=== PATIENT | female | born 1960 | race Caucasian/White ===

== ENCOUNTER 2019-04-09 07:58 | Outpatient (CLI) | payer OTHER, SELFPAY ==
--- NOTE | ~2019-04-09 | CT_ITS ---
EXAMINATION: CT abdomen pelvis w con DATE: 04/09/2019 08:48 INDICATION: Right lower quadrant abdominal pain TECHNIQUE: Computed tomography (CT) of the abdomen and pelvis was performed with 100 mL Omnipaque-350 intravenous contrast. Automated exposure control and iterative reconstruction technique were employe d. The dose-length product was 375.52 mGy-cm. COMPARISON: 09/14/2017 FINDINGS: Minimal atelectasis in the right middle lobe. Heart size is normal. No pericardial or pleural effusio n. Small sliding-type hiatal hernia. Liver, gallbladder, pancreas, bilateral adrenal glands are neisha l. Multiple small splenic calcifications consistent with old granulomatous disease. 2 mm and 2 mm non obstructing stones at lower pole calyces of the left kidney. 1 cm exophytic cyst at the lower pole of the right kidney. Unchanged pattern of phleboliths in the pelvis. No stones seen along the course of the normal ureters. There are few scattered colonic diverticula without adjacent inflammatory change to suggest diverticulitis. Small bowel and appendix are normal. Bladder, anteverted uterus and bilat eral ovaries are normal. There is increased prominence of the left gonadal vein and left parametrial vessels which can be seen with pelvic vascular congestion syndrome. Very small amount of likely physi ologic free fluid in the pelvis. No abscess or free intraperitoneal gas. No pathologically enlarged a bdominal or pelvic lymphadenopathy. Tiny fat-containing umbilical hernia. 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 IMPRESSION: 1. Nonobstructing left nephrolithiasis. 2. Small sliding-type hiatal hernia. Reviewed, dictated and finalized at location A. L FINISHER
[2019-04-09 08:37] LABS: Estimated Glomerular Filt Rate > 60
== END 2019-04-09 07:59 | disposition home or self-care (01) ==
PROVIDERS: PCP Internal Medicine; Visit Provider Nurse Practitioner
DX: R10.32 Left lower quadrant pain (principal); N20.0 Calculus of kidney; K44.9 Diaphragmatic hernia without obstruction or gangrene
CPT/HCPCS: 36415; 74177; Q9967

== ENCOUNTER → 2019-04-09 11:53 | Outpatient (CLI) | payer OTHER, SELFPAY ==
--- NOTE | ~2019-04-09 | US_ITS ---
EXAMINATION: US abdomen limited DATE: 04/09/2019 12:11 INDICATION: Abnormal liver function tests. TECHNIQUE: Multiple grayscale and Doppler ultrasound images of the abdomen were obtained. COMPARISON: Abdomen ultrasound 08/31/2012, CT abdomen and pelvis 04/09/2019 FINDINGS: The visualized portions of the head and body of the pancreas are normal. The liver is neisha l without focal lesion. No liver surface nodularity. There is normal flow in main portal vein. The ga llbladder is normal in size. No gallstones or gallbladder wall thickening. There was no sonographic M urphy sign. The common duct is normal and measures 4 mm. IMPRESSION: 1. Normal right upper quadrant ultrasound. Reviewed, dictated and finalized at location A. CTOR ADVERTISING
== END ==
PROVIDERS: PCP Internal Medicine; Visit Provider Nurse Practitioner
DX: R94.5 Abnormal results of liver function studies (principal)
CPT/HCPCS: 76705

== ENCOUNTER → 2019-08-12 08:26 | Outpatient (CLI) | payer OTHER, SELFPAY ==
--- NOTE | ~2019-08-12 | MMUS_ITS ---
EXAMINATION: MM diagnostic mike BI w hector, US breast LT limited HISTORY: Left breast pain TECHNIQUE: Craniocaudal, mediolateral, and mediolateral oblique 3-D tomosynthesis images of the breas ts were performed and synthetic 2-D images were generated. CAD analysis was submitted and interpreted . High resolution limited left breast ultrasound was performed. COMPARISON: 07/19/2018, 06/09/2011, 12/27/2010 BREAST PARENCHYMAL COMPOSITION: There are scattered areas of fibroglandular density. FINDINGS: MAMMOGRAPHIC FINDINGS: There is no evidence of suspicious mass, calcification, or architectural distortion in either breast to suggest malignancy. There has been no suspicious interval change. A chronic asymmetry is present in the middle third of the inner left breast on the craniocaudal view which is stable on multiple co mparison examinations and considered benign. ULTRASOUND: There is no evidence of focal abnormal solid or cystic lesion in the vicinity of the area of left niesha ast pain IMPRESSION: 1. No specific mammographic or sonographic correlate is identified for the patient's reported left br east pain Further evaluation at this time should be based on clinical assessment. Continued follow-up physical examination is recommended. 2. Recommend routine screening mammography in one year. BI-RADS Category 2: Benign finding(s). Reviewed, dictated and finalized at location A. IMPRESSION: 1. No specific mammographic or sonographic correlate is identified for the jeremy ent's reported left breast pain Further evaluation at this time should be based on clinical assessment. Continued follow-up physical examination is recommende d. 2. Recommend routine screening mammography in one year. BI-RADS Category 2: Benign finding(s).
== END ==
PROVIDERS: PCP Internal Medicine; Visit Provider Advanced Practice Midwife
DX: N64.4 Mastodynia (principal)
CPT/HCPCS: 76642; 77062; 77066; G0279

== ENCOUNTER 2019-11-12 14:18 | Outpatient (CLI) | payer OTHER, SELFPAY ==
--- NOTE | 2019-11-19 11:53 | WPDHOLTEREM ---
Holter/Event Monitor Holter/Event Monitor Date of procedure: 11/12/19 Procedure Type: 48 hour holter monitor Indications: Palpitations Conclusion: 1. 48 hour holter monitor on 11/12/19. 2. Underlying rhythm is sinus rhythm. HR range 57-146 bpm; average HR 78 bpm. 3. There are 36 premature supraventricular complexes and 3 supraventricular couplets. No supraventricular tachycardia. 4. There are 12 premature ventricular complexes. No ventricular tachycardia. 5. No sinoatrial or atrioventricular blocks. No significant pauses greater than 2 seconds. 6. Patient reports rapid pounding heart beat twice which demonstrate sinus rhythm, HR range 67-91 bpm.
== END 2019-11-12 14:19 | disposition home or self-care (01) ==
PROVIDERS: PCP Internal Medicine; Visit Provider Nurse Practitioner
DX: R00.2 Palpitations (principal)
CPT/HCPCS: 93225; 93226

== ENCOUNTER → 2020-03-12 10:13 | Outpatient (CLI) | payer OTHER, SELFPAY ==
[2020-03-12 21:06] LABS: SARS-CoV-2 RNA PCR Negative
== END ==
PROVIDERS: PCP Internal Medicine; Visit Provider Internal Medicine
DX: R68.89 Other general symptoms and signs (principal); Z20.822 Contact with and (suspected) exposure to COVID-19
CPT/HCPCS: C9803; U0003; U0005

== ENCOUNTER → 2020-04-04 06:48 | Outpatient (CLI) | payer OTHER, SELFPAY ==
[2020-04-04 23:33] LABS: SARS-CoV-2 RNA PCR Negative
== END ==
PROVIDERS: PCP Internal Medicine; Visit Provider Internal Medicine
DX: R68.89 Other general symptoms and signs (principal); Z20.822 Contact with and (suspected) exposure to COVID-19
CPT/HCPCS: C9803; U0003; U0005

== ENCOUNTER → 2020-08-24 08:26 | Outpatient (CLI) | payer OTHER, SELFPAY ==
--- NOTE | ~2020-08-24 | US_ITS ---
EXAMINATION: US abdomen limited DATE: 08/24/2020 09:04 INDICATION: Left upper quadrant pain TECHNIQUE: Multiple grayscale and Doppler ultrasound images of the abdomen were obtained. COMPARISON: None available FINDINGS: The normal spleen measures 9.5 cm. The left kidney measures 9.8 x 4.8 x 4.7 cm. There is no hydronephrosis. IMPRESSION: 1. No sonographic correlate for the patient's symptoms. Reviewed, dictated and finalized at location B.
== END ==
PROVIDERS: PCP Internal Medicine; Visit Provider Nurse Practitioner
DX: R10.12 Left upper quadrant pain (principal)
CPT/HCPCS: 76705

== ENCOUNTER 2020-08-31 14:08 | Outpatient (CLI) | payer OTHER, SELFPAY | END 2020-08-31 14:09 | disposition home or self-care (01) | PROVIDERS: PCP Internal Medicine; Referring Provider Internal Medicine; Visit Provider Obstetrics & Gynecology | DX: J31.0 Chronic rhinitis (principal); B97.4 Respiratory syncytial virus as the cause of diseases classified elsewhere | CPT/HCPCS: 87420 ==

== ENCOUNTER 2020-11-12 12:39 | Outpatient (CLI) | payer OTHER, SELFPAY ==
--- NOTE | ~2020-11-12 | US_ITS ---
EXAMINATION: US venous doppler [facility] DATE: 11/12/2020 14:08 INDICATION: Left lower limb pain and swelling TECHNIQUE: Grayscale ultrasound images without and with compression and Doppler ultrasound images of the left lower extremity veins were obtained. COMPARISON: None. FINDINGS: The visualized portions of left common femoral vein, profunda (deep) femoral vein, femoral vein, popl iteal vein, peroneal veins, posterior tibial veins, gastrocnemius vein and greater saphenous vein out flow are patent. IMPRESSION: 1. No deep venous thrombosis in the left lower limb. Reviewed, dictated and finalized at location B.
--- NOTE | 2020-11-12 13:36 | ECHO_ITS ---
Patient Info Name: Ivory Brown Age: 59 years : 1960 Gender: Female Ht: 64 in Wt: 165 lbs BSA: 1.86 m2 HR: 69 bpm BP: 143 / 68 mmHg Technical Quality: Fair Exam Date: 11/12/2020 1:38 PM Exam Location: [facility] Patient Status: Outpatient Admit Date: 11/12/2020 Staff Ordering Physician: Aparna Swift Bee Tender: Opal Honeycutt RDCS Attending Provider: Aparna Swift Referring Physician: Jeniffer KENNY; Exam Type: CA echo doppler color flow Study Info Indications R60.9 - Edema, unspecified Complete two-dimensional, color flow and Doppler transthoracic echocardiogram is performed. Summary 1. Complete two-dimensional, color flow and Doppler transthoracic echocardiogram is performed. 2. Left ventricular chamber dimension is normal. 3. Left ventricular systolic function is normal, estimated at 60-65%. 4. The left ventricular diastolic function is grade II diastolic dysfunction. 5. E/e' 8 is minimally elevated. 6. There is mild mitral valve regurgitation. 7. No pulmonary hypertension, estimated pulmonary arterial systolic pressure is 27 mmHg. Left Ventricle E/e' 8 is minimally elevated. Left ventricular chamber dimension is normal. Left ventricular systolic function is normal, estimated at 60-65%. The left ventricular diastolic function is grade II diastolic dysfunction. Right Ventricle Right ventricular chamber dimension is normal. Right ventricular systolic function is normal. Left Atria Left atrial chamber dimension is normal. Right Atria Right atrial chamber dimension is normal. Aortic Valve The aortic valve is trileaflet. There is no aortic valve stenosis. There is no aortic valve regurgitation. Pulmonic Valve There is no pulmonic regurgitation. Mitral Valve There is no mitral valve stenosis. There is mild mitral valve regurgitation. Tricuspid Valve There is no tricuspid valve regurgitation. No pulmonary hypertension, estimated pulmonary arterial systolic pressure is 27 mmHg. Pericardium/Pleural There is no pericardial effusion. Inferior Vena Cava Normal inferior vena cava with >50% collapse upon inspiration consistent with normal right atrial pressure, 5 mmHg. Aorta The aortic root size at the sinus of Valsalva is normal. Left Ventricular Outflow Tract Name Value Normal LVOT 2D LVOT Diameter 2.0 cm LVOT Doppler LVOT Peak Gradient 4 mmHg LVOT Mean Gradient 2 mmHg LVOT VTI 23 cm LVOT VTI/AV VTI Ratio 0.8 LVOT Stroke Volume 68 ml LVOT CO 4.2 l/min LVOT CI 2.3 l/min/m2 Pulmonic Valve Name Value Normal RVOT Doppler RVOT Peak Gradient 3 mmHg
== END 2020-11-12 12:40 | disposition home or self-care (01) ==
PROVIDERS: PCP Internal Medicine; Visit Provider Nurse Practitioner
DX: R60.9 Edema, unspecified (principal); M79.605 Pain in left leg
CPT/HCPCS: 93306; 93971

== ENCOUNTER → 2021-01-06 02:37 | Outpatient (CLI) | payer OTHER, SELFPAY ==
[2021-01-06 11:25] LABS: Influenza Control Positive
[2021-01-06 17:58] LABS: SARS-CoV-2 RNA PCR Negative
== END ==
PROVIDERS: PCP Internal Medicine; Visit Provider Internal Medicine
DX: R68.89 Other general symptoms and signs (principal); Z20.822 Contact with and (suspected) exposure to COVID-19
CPT/HCPCS: 87804; C9803; U0003; U0005

== ENCOUNTER 2021-04-04 13:42 | Emergency (ER) | payer OTHER, SELFPAY ==
--- NOTE | ~2021-04-04 | XR_ITS ---
EXAMINATION: XR chest 2V EXAM DATE: 04/04/2021 14:19 INDICATION: COUGH;hx of Rt lobectomy 2003 . TECHNIQUE: Frontal and lateral projections of the chest obtained and reviewed. Comparison is made to prior examination from 07/06/2017. FINDINGS: The lungs are clear. There are no pleural effusions. The cardiomediastinal silhouette i s within normal limits. There is no pneumothorax suspected. The bones and soft tissues are unremark able. IMPRESSION: No acute cardiopulmonary findings. Reviewed, dictated and finalized at location A. AINER COORDINATOR
--- NOTE | 2021-04-04 13:44 | ED.URI ---
HPI - URI/Sore Throat General Chief Complaint: Upper Respiratory Infection Stated Complaint: WHEEZING/BACK PAIN WITH BREATHING Time Seen by Provider: 04/04/21 13:44 Source: patient, RN notes reviewed and old records reviewed Mode of arrival: ambulatory Limitations: no limitations History of Present Illness HPI Narrative: 60-year-old female patient presents to clinic with complaints of cough and chest pain with cough and deep breaths. Reports grandson tested positive for strep and influenza last week. Patient started with fever of 102.5 days ago had sinus congestion and drainage. Severe headache and sore throat. Productive cough bringing up greenish sputum. Spoke to PCP 2 days ago, he ordered Z-Chacorta, which she started. Reports increased fatigue, slept for the last 2 days only getting up to use the bathroom and eat. Reports feeling better, less fatigue, temp was 100.3 this morning. Still coughing, bringing up greenish sputum. Reports mid scapular and right lower lobe pain with coughing and deep breaths. Patient is concerned she may have pneumonia. Reports decreased appetite, still drinking, feels she is staying hydrated. MD elicited complaint: cough, sore throat, rhinorrhea and nasal congestion Related Data Allergies Allergy/AdvReac Type Severity Reaction Status Date / Time adhesive tape Allergy Severe Other Verified 11/23/20 14:39 Review of Systems Review of Systems: CONSTITUTIONAL: Denies chills, sweats. Reports fatigue and fever of 102.5. EYES: Denies visual changes, redness, or discharge. ENT: Reports rhinorrhea, congestion, and sore throat. Denies ear pain. CARDIOVASCULAR: Denies chest pain, palpitations, or edema. RESPIRATORY: Reports cough with greenish sputum. Sharp pain in mid back with cough and deep breaths. GASTROINTESTINAL: Denies abdominal pain, nausea, vomiting, diarrhea SKIN: Denies rash or itching. MUSCULOSKELETAL: Denies myalgia. NEUROLOGIC: Reports severe headache times last 2 to 3 days. All systems reviewed & are unremarkable except as noted in HPI and below PMFSH Past Medical History Medical History (Updated 04/04/21 @ 14:52 by Lenka Huertas APRN) Adult hypothyroidism Essential (primary) hypertension Hx of cancer of lung Mixed hyperlipidemia Family History Family History Mother Cerebrovascular accident Family history of malignant neoplasm Father Family history of congestive heart failure Other Diabetes mellitus Family history of cardiovascular disease Hypertension Social History Social History Smoking status: Never smoker Second hand tobacco smoke exposure: No Alcohol intake: current Drinks per week: 3 Substance use: never Substance use type: does not use Comments At time of signature, agree with nursing past medical, surgical, social and family history. There is no relevant family history pertinent to the presenting complaint Exam Narrative: GENERAL: Well-appearing, well-nourished, female and in no acute distress. HEAD: Normocephalic. Atraumatic. EYES: Conjunctivae clear. EOMI. ENT: Nares patent, turbinates edematous and erythematous, clear discharge. Mucous membranes moist. TM pearly sorenson with dull light reflex bilaterally; no tragal tenderness. Right tympanic membrane effusion. Oropharynx erythematous without lesions. Tonsils enlarged and without exudate, no drooling, no hoarseness, no trismus, uvula midline. Clear postnasal drip. NECK: Supple. No anterior cervical lymphadenopathy or tenderness with palpation. CHEST: Clear to auscultation anterior, left posterior, upper right posterior. Decreased breath sounds right lower lobe due to lobectomy. No wheezing, rhonchi, rales, or stridor. No respiratory distress, speaks in full sentences. Occasional dry cough. HEART: Regular rate and rhythm. No murmur heard. SKIN: [place], warm, dry, no rash. NEURO: Alert
[2021-04-04 13:50] VITALS: BP 141/72; PULSE 83; RESP 16; TEMP 36.6; O2SAT 99
== END 2021-04-04 14:58 | disposition home or self-care (01) ==
PROVIDERS: Emergency Provider Nurse Practitioner Family; PCP Internal Medicine
DX: J06.9 Acute upper respiratory infection, unspecified (principal); R05.9 Cough, unspecified; E03.9 Hypothyroidism, unspecified; I10 Essential (primary) hypertension; E78.2 Mixed hyperlipidemia; Z85.118 Personal history of other malignant neoplasm of bronchus and lung
CPT/HCPCS: 71046; 99213; G0463

== ENCOUNTER 2021-08-23 17:20 | Emergency (ER) | payer OTHER, SELFPAY ==
--- NOTE | 2021-08-23 17:23 | ED.EAR ---
HPI - Ear Problem General Chief complaint: Ear Stated complaint: NECK PAIN/EARACHE Time Seen by Provider: 08/23/21 17:25 Source: patient and RN notes reviewed History of Present Illness HPI Narrative: Patient is a 6-year-old female who presents the urgent care with complaints of left ear pain for the last week. Patient is not on anything [id number] for her symptoms. Denies of any other upper respiratory complaints. Denies of any fever, chills, nausea or vomiting. States the ear pain is radiating down the left neck at times. Denies any trauma or injury to the ear. Denies any drainage. No other acute complaints. No acute distress noted. Patient read the plan of care. Some parts of this dictation were generated by voice recognition software and may contain typographical and/or grammatical inaccuracies. Related Data Allergies Allergy/AdvReac Type Severity Reaction Status Date / Time adhesive tape Allergy Severe Other Verified 08/23/21 17:29 Review of Systems Review of Systems: CONSTITUTIONAL: Denies fever, chills, or sweats. EYES: Denies visual changes, redness, or discharge. ENT: Denies rhinorrhea, congestion, sore throat. Reports of left otalgia CARDIOVASCULAR: Denies chest pain, palpitations, or edema. RESPIRATORY: Denies cough or dyspnea. GASTROINTESTINAL: Denies abdominal pain, nausea, vomiting, or diarrhea. GENITOURINARY: Denies dysuria or hematuria. SKIN: Denies rash or itching. MUSCULOSKELETAL: Denies back pain, joint pain, or myalgia. NEUROLOGIC: Denies headache, numbness, or weakness. All other systems reviewed are negative, except as documented in HPI. [facility] Past Medical History Medical History (Updated 08/23/21 @ 17:36 by GUS Kimball) Adult hypothyroidism Essential (primary) hypertension Hx of cancer of lung Mixed hyperlipidemia Family History Family History Mother Cerebrovascular accident Family history of malignant neoplasm Father Family history of congestive heart failure Other Diabetes mellitus Family history of cardiovascular disease Hypertension Social History Social History Smoking status: Never smoker Second hand tobacco smoke exposure: No Alcohol intake: current Drinks per week: 3 Substance use: never Substance use type: does not use Comments At the time of my signature, I reviewed and agree with the nursing past medical, surgical, social, and family history. There is no relevant family history pertinent to the patient complaint. Exam Narrative: GENERAL: This is a well-nourished, well-developed patient, in no apparent distress. HEAD: normocephalic, atraumatic. EYES: PERRL. Sclera clear/white. Vision is grossly intact. EARS: External ears normal, auditory canals clear and without drainage, mild bilateral station tube dysfunction/effusions. TMs normal without perforation. Hearing grossly intact. NOSE: External nose normal with no obvious nasal discharge, nares without redness, no rhinorrhea. THROAT: Mucous membranes moist, posterior pharynx clear. Mild postnasal drainage NECK: Neck supple, non-tender without lymphadenopathy CARDIOVASCULAR: Regular rate and rhythm without murmurs, gallops, or rubs. RESPIRATORY: Clear to auscultation. Breath sounds equal bilaterally. No wheezes, rales, or rhonchi. SKIN: warm, intact with no suspicious lesions or rash, good texture and turgor. NEURO: awake, alert, and oriented to person, place and time. There were no obvious focal neurologic abnormalities. EXTREMITIES: No clubbing, cyanosis, or edema. Course Course Level of Care: Express Care Visit Vital Signs Vital signs: Vital Signs Temperature 97.7 F 08/23/21 17:30 Pulse Rate 68 08/23/21 17:30 Respiratory Rate 16 08/23/21 17:30 Blood Pressure 149/67 H 08/23/21 17:30 Pulse Oximetry 99 08/23/21 17:30 Temperature 97.7 F 08/23/21
[2021-08-23 17:30] VITALS: BP 149/67; PULSE 68; RESP 16; TEMP 36.5; O2SAT 99
== END 2021-08-23 17:40 | disposition home or self-care (01) ==
PROVIDERS: Emergency Provider Nurse Practitioner Family; PCP Internal Medicine
DX: H69.93 Unspecified Eustachian tube disorder, bilateral (principal); E03.9 Hypothyroidism, unspecified; I10 Essential (primary) hypertension; E78.2 Mixed hyperlipidemia; Z85.118 Personal history of other malignant neoplasm of bronchus and lung
CPT/HCPCS: 99213; G0463

== ENCOUNTER 2022-08-01 11:30 | Emergency (ER) | payer OTHER, SELFPAY ==
--- NOTE | ~2022-08-01 | XR_ITS ---
EXAMINATION: XR finger 3rd LT min 2V DATE: 08/01/2022 11:54 INDICATION: Pain at the left third digit post injury. TECHNIQUE: Dorsal palmar, lateral and 2 oblique views of the left third digit were obtained COMPARISON: None FINDINGS: Bone alignment is normal. No fracture. Polyarticular osteoarthritis, moderate severity at the at the third and fourth proximal and distal interphalangeal joints and mild at the metacarpal and visualized carpometacarpal and metacarpophalangeal joints. Mild soft tissue swelling about the left third digit . IMPRESSION: 1. 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 No acute osseous abnormality. Reviewed, dictated and finalized at location A. IMPRESSION: 1. Mild to moderate polyarticular osteoarthritis with interphalangeal predomina nce. No acute osseous abnormality.
[2022-08-01 11:45] VITALS: BP 126/93; PULSE 74; RESP 16; TEMP 36.3; O2SAT 100
--- NOTE | 2022-08-01 11:52 | ED.UPPEXIN ---
HPI - Extremity Injury (Upper) General Chief Complaint: Extremity Injury, Upper Stated Complaint: . Time Seen by Provider: 08/01/22 11:34 Source: patient Mode of arrival: ambulatory Limitations: no limitations History of Present Illness HPI narrative: Patient is a 61-year-old female who presents with left 3rd digit pain after jamming it into a cooler 11 days ago. Patient has been taking ibuprofen but has not used ice. Is painful to move and tender to touch on PIP joint. Joint is also swollen. denies any numbness or tingling. Related Data Allergies Allergy/AdvReac Type Severity Reaction Status Date / Time adhesive tape Allergy Severe Other Verified 08/01/22 11:49 Review of Systems Review of Systems: All systems reviewed & are unremarkable except as noted in HPI and below Constitutional: Constitutional: Denies body ache(s), Denies chills, Denies fatigue, Denies fever(s), Denies headache(s), Denies malaise and Denies weakness Eyes: Eyes: Denies blurry vision, Denies irritation and Denies loss of vision ENT: Denies otalgia, Denies headache(s), Denies nasal discharge, Denies sinus pain and Denies sore throat Cardiovascular: Cardiovascular: Denies chest pain, Denies irregular heart rhythm and Denies dyspnea Respiratory: Respiratory: Denies dyspnea Gastrointestinal: Gastrointestinal: Denies abdominal pain, Denies melena, Denies hematochezia, Denies diarrhea, Denies nausea and Denies vomiting Musculoskeletal: Musculoskeletal: Denies back pain, Denies myalgias, Reports arthralgias and Reports joint swelling Integumentary/Breasts: Skin/Breast: Denies pruritus and Denies rash Neurologic: Denies headache(s), Denies loss of vision and Denies weakness Psychiatric: Psychiatric: Reports no additional psychiatric complaints Endocrine: Endocrine: Denies fatigue PMFSH Past Medical History Medical History (Updated 08/01/22 @ 12:03 by Becky Elmore APRN) Adult hypothyroidism Essential (primary) hypertension Hx of cancer of lung Mixed hyperlipidemia Family History Family History Mother Cerebrovascular accident Family history of malignant neoplasm Father Family history of congestive heart failure Other Diabetes mellitus Family history of cardiovascular disease Hypertension Social History Social History (Updated 01/11/22 @ 15:15 by Jay Jay Meyer, [facility]) Smoking status: Never smoker Second hand tobacco smoke exposure: No Alcohol intake: current Drinks per week: 3 Substance use: never Substance use type: does not use Lack of Transportation: No Lack of Food: Never True Current Housing: I Have Housing Concerned About Future Housing: No Difficulty Paying Gas/Electric Bills: No Difficulty Paying for Meds: No Currently Unemployed: No Education: Master's Degree or Higher Difficulty w/ Childcare or Family Care: No Comments At time of signature, agree with nursing past medical, surgical, social and family history. There is no relevant family history pertinent to the presenting complaint. Exam Const: General: cooperative, healthy appearing, comfortable, no acute distress and well nourished Nutritional Appearance: well nourished Orientation/consciousness: patient oriented x3 Limitations: no limitations HENMT: Head: normal to inspection, normocephalic and atraumatic Ears: hearing grossly normal bilaterally and external ears normal Face/Nose/Sinus: Normal external nose present, normal facial exam and face symmetric Face and sinus: normal facial exam and face symmetric Mouth: Yes lip normal Eyes: General: appearance normal, both eyes and all related structures Alignment and Position: alignment normal and position normal Periorbital: periorbital findings normal Eyelids: eyelids normal Pupils: Equal, round and reactive pupils present EOM: EOMs intact bilaterally Neck: Neck: normal visual inspection, full ROM and supple
== END 2022-08-01 12:14 | disposition home or self-care (01) ==
PROVIDERS: Emergency Provider Nurse Practitioner Family
DX: S63.633A Sprain of interphalangeal joint of left middle finger, initial encounter (principal); W22.8XXA Striking against or struck by other objects, initial encounter; E03.9 Hypothyroidism, unspecified; I10 Essential (primary) hypertension; E78.2 Mixed hyperlipidemia; Z85.118 Personal history of other malignant neoplasm of bronchus and lung
CPT/HCPCS: 73140; 99213; G0463

== ENCOUNTER → 2022-08-05 08:14 | Outpatient (CLI) | payer OTHER, SELFPAY ==
--- NOTE | ~2022-08-05 | XR_ITS ---
EXAMINATION:[id number] DATE: 08/05/2022 08:26 INDICATION: Neck pain TECHNIQUE: AP, lateral, lateral swimmers and odontoid views of the cervical spine are provided. COMPARISON: None FINDINGS: There are 2 mm of anterolisthesis of C4 on C5. The odontoid process is intact. No fracture is identified. The vertebral body heights are normal. There is moderate loss of intervertebral disc s pace height at C5-C6 and C6-7. Small degenerative osteophytes project from the anterior endplates of multiple vertebral bodies. There is multilevel moderate to severe facet and uncovertebral joint osteo arthritis. Prevertebral soft tissues are normal. IMPRESSION: 1. Moderate cervical spondylosis without acute findings. Reviewed, dictated and finalized at location B.
== END ==
PROVIDERS: PCP Family Medicine; Visit Provider Nurse Practitioner
DX: M47.892 Other spondylosis, cervical region (principal)
CPT/HCPCS: 72040

== ENCOUNTER → 2023-03-03 13:01 | Outpatient (CLI) | payer OTHER, SELFPAY ==
--- NOTE | ~2023-03-03 | US_ITS ---
EXAMINATION:US venous doppler LE RT INDICATION:Right leg pain TECHNIQUE: Multiple grayscale, color flow and Doppler images of the right lower extremity deep venous systems were obtained and reviewed. COMPARISON:No prior studies for comparison. FINDINGS: The common femoral, superficial femoral and popliteal veins demonstrate normal respiratory variation, augmentation and compressibility. Color flow is also seen within the posterior tibial, pe roneal, greater saphenous and profunda veins. IMPRESSION: 1: No lower extremity deep venous thrombosis. Reviewed, dictated and finalized at location B. BANQUET WAITER/WAITRESS
== END ==
PROVIDERS: PCP Nurse Practitioner Family; Visit Provider Nurse Practitioner Family
DX: M79.604 Pain in right leg (principal)
CPT/HCPCS: 93971

== ENCOUNTER 2023-06-20 09:27 | Outpatient (CLI) | payer OTHER, SELFPAY ==
--- NOTE | ~2023-06-20 | MMUS_ITS ---
EXAMINATION: MM diagnostic mike LT w hector, US breast LT complete HISTORY: Left breast pain. History of recent normal mammogram at [place]. TECHNIQUE: ML, MLO and CC 3-D tomosynthesis images of the left breast were performed and synthetic 2- D images were generated. CAD analysis was submitted and interpreted. High resolution complete left br east ultrasound examination including all 4 quadrants and subareolar area was performed. COMPARISON: 08/12/2019 diagnostic bilateral mammogram and limited left breast ultrasound examination BREAST PARENCHYMAL COMPOSITION: There are scattered areas of fibroglandular density. FINDINGS: MAMMOGRAPHIC FINDINGS: No suspicious mass, architectural distortion, malignant calcification, skin thickening or retraction or significant new or developing density since 08/12 2019 is detected. A few benign calcifications are noted. ULTRASOUND: No suspicious mass or shadowing, cyst or other significant sonographic abnormality is detected. IMPRESSION: 1. No evidence of malignancy 2. Routine annual mammographic screening is recommended BI-RADS Category 2: Benign finding(s). Reviewed, dictated and finalized at location A. IMPRESSION: 1. No evidence of malignancy 2. Routine annual mammographic screening is recommended BI-RADS Category 2: Benign finding(s).
== END 2023-06-20 09:28 | disposition home or self-care (01) ==
LOC: CHSIMG 09:29
PROVIDERS: PCP Family Medicine; Visit Provider Nurse Practitioner Obstetrics & Gynecology
DX: N63.21 Unspecified lump in the left breast, upper outer quadrant (principal)
CPT/HCPCS: 76641; 77061; 77065; G0279

== ENCOUNTER 2023-08-19 13:23 | Observation (INO) | payer OTHER, SELFPAY ==
--- NOTE | ~2023-08-19 | XR_ITS ---
EXAMINATION: XR chest 1V portable DATE: 08/20/2023 05:45 INDICATION: Prior lung cancer presenting for preoperative evaluation. TECHNIQUE: frontal view of the chest was obtained. COMPARISON: Chest radiograph dated 04/04/[address] abdomen and pelvis dated 08/22/2023 FINDINGS: Mild linear discoid atelectasis in the bilateral lower lungs. No other airspace opacities, pulmonary edema, pleural effusion or pneumothorax. The cardiomediastinal silhouette is normal. Change of prior right thoracotomy with widening of the space between the right fifth and sixth ribs and irregular con tour to the sixth rib. IMPRESSION: 1. Mild bibasilar atelectasis. Reviewed, dictated and finalized at location A.
--- NOTE | ~2023-08-19 | XR_ITS ---
EXAMINATION: XR retrograde pyelo w/stent LT DATE: 08/20/2023 08:42 INDICATION: Left-sided renal stone TECHNIQUE: 5 fluoroscopic images of the abdomen were obtained during procedure performed by Dr. Ordoñez . Radiologist was not present for the imaging or procedure. The amount of fluoroscopy time used durin g this procedure was 0.5 minutes. COMPARISON: None. FINDINGS: A wire advanced through the right ureter extends past a large stone in the proximal left ureter. Subs equent images demonstrate a catheter advanced to the left ureter to the renal pelvis with retrograde contrast injection opacifying the left renal collecting system. There is mild left hydronephrosis. Th e stone is no longer present at the proximal left ureter. There is a lucent filling defect in the lef t renal pelvis which is of similar size and configuration likely representing the stone refluxed into the renal pelvis. IMPRESSION: 1. The proximal left ureteral stone has likely refluxed into the left renal pelvis where there was mi ld hydronephrosis. See procedure note for further detail. Reviewed, dictated and finalized at location A. IMPRESSION: 1. The proximal left ureteral stone has likely refluxed into the left renal pel vis where there was mild hydronephrosis. See procedure note for further detail.
--- NOTE | ~2023-08-19 | CT_ITS ---
Non-contrast CT scan of the Abdomen and Pelvis Clinical indication: Flank pain Technique: 2.5 mm axial scans were obtained through the abdomen and pelvis without intravenous or or al contrast. Dose reduction technique was used on this scan by utilizing automated exposure control a nd iterative reconstruction technique. The dose-length product (DLP) was 549.19 mGy-cm. Findings: Images through the lung bases reveal moderate hiatal hernia. There is an 8 mm stone at the very proximal left ureter, essentially at the UPJ, with mild to moderat e left hydronephrosis. Additional 4 mm obstructing left renal stone present. No right renal or ureter al stone. No right hydronephrosis. The liver, spleen, pancreas, gallbladder, and adrenals appear normal. There is no aortic aneurysm. There is no evidence of bowel obstruction. Images through the pelvis were performed. There is no evidence of ascites or lymphadenopathy. Urinary bladder unremarkable. No pelvic mass seen. Impression: 8 mm proximal left ureteral stone, essentially at the left UPJ, with mild to moderate left hydronephr osis. Additional 4 mm nonobstructing left renal stone. Moderate hiatal hernia. Reviewed, dictated and finalized at [facility]. Impression: 8 mm proximal left ureteral stone, essentially at the left UPJ, with mild to mo derate left hydronephrosis. Additional 4 mm nonobstructing left renal stone. Moderate hiatal hernia.
[2023-08-19 13:29] VITALS: BP 178/63; PULSE 79; RESP 16; TEMP 36.4; O2SAT 100
[2023-08-19] MEDS: ONDANSETRON INJ 4 MG/2 ML VIAL IV PUSH ×2 (14:23→17:54)
[2023-08-19] MEDS: MORPHINE SULFATE (*CRX) 4 MG/ML INJ IV PUSH (14:23)
[2023-08-19] MEDS: SODIUM CHLORIDE 0.9% IV 1,000 ML 999 ML IV CONT (14:24)
[2023-08-19 14:27] LABS: Basophils Absolute Auto 0.1 K/mm3 (0.0-0.1); Basophils Percent Auto 0.7 % (0.2-1.2); Eosinophils Absolute Auto 0.1 K/mm3 (0-0.3); Eosinophils Percent Auto 1.8 % (0-4.4); Hemoglobin 13.2 g/dL (12.0-15.0); Immature Granulocyte Absolute 0.03 K/mm3 (0.00-0.031); Immature Granulocyte Percent A 0.4 % (0-0.5); Lymphocytes Absolute Auto 1.43 K/mm3 (0.9-3.2); Lymphocytes Percent Auto 18.7 % (18.3-44.2); Mean Corpuscular HGB Conc 34.7 g/dl (32-36); Mean Corpuscular Hemoglobin 31.3 pg (26-34); Mean Platelet Volume 10.2 fl (7.4-10.4); Monocytes Absolute Auto 0.4 K/mm3 (0.1-0.6); Monocytes Percent Auto 5.8 % (2.6-8.5); Neutrophils Absolute Auto 5.5 K/mm3 (1.3-6.7); Neutrophils Percent Auto 72.6 % (45.5-73.1); Platelet Count Result 200 k/mm3 (150-375); Red Blood Count 4.22 M/mm3 (4.2-5.4); Red Cell Distribution Width 12.4 % (11.5-14.5); White Blood Count 7.6 K/mm3 (4.5-10.0)
[2023-08-19 14:36] LABS: Alanine Aminotransferase 22 U/L (6-35); Albumin Level 4.6 g/dL (3.5-5.1); Alkaline Phosphatase 83 U/L (38-126); Anion Gap 10 mmol/L (4-12); Aspartate Amino Transferase 26 U/L (14-36); Bilirubin,Total 0.5 mg/dL (0.2-1.3); Blood Urea Nitrogen 13 mg/dL (7-17); Calcium 9.3 mg/dL (8.4-10.2); Carbon Dioxide 25 mmol/L (22-30); Chloride 102 mmol/L (98-107); Estimated CRCL calculation 58 ml/min; Estimated Glomerular Filt Rate > 60; Glucose 114 mg/dL (65-110); Potassium 3.8 mmol/L (3.4-5.0); Sodium 137 mmol/L (137-145)
[2023-08-19 14:50] LABS: Add Urine Microscopic? YES; Appearance Urine Turbid (Clear); Bacteria Urine None Seen /hpf; Bilirubin Urine 1+ (Negative); Blood Urine 3+ (Negative); Color Urine Dark Yellow (Yellow); Glucose Urine UA Negative (Negative); Ketones Urine Negative (Negative); Leukocyte Esterase Ur 1+ LEU/UL (Negative); Need Manual Microscopic Reviewed; Nitrate Urine Negative (Negative); Non Pathogenic Casts 0-2; Protein Urine 2+ mg/dL (Negative); RBC Urine >100 /hpf (0-2); Specific Grav Ur 1.026 (1.001-1.035); Squamous Epithelial Cell Urine None Seen /hpf (Few); pH Urine 5.5 (5.0-9.0)
[2023-08-19] MEDS: HYDROmorphone HCL INJ (*CRX) 1 MG/ML SYR IV PUSH (14:50)
[2023-08-19 15:00] VITALS: BP 170/65; PULSE 75; RESP 12; O2SAT 100
--- NOTE | 2023-08-19 15:07 | ED.GENADULT ---
HPI - General Adult General Chief complaint: Urogenital-Female Stated complaint: blood in urine Time Seen by Provider: 08/19/23 13:48 History of Present Illness HPI narrative: patient is a 62-year-old female who presents emergency department with chief complaint of left lower quadrant pain. Patient reports started having discomfort in her back last night and reports that today she noticed a little bit of blood in her urine patient reports the pain is difficult to control reports that it is not worsened or improved by anything. Related Data Home Medications Medication Instructions Recorded Confirmed dupilumab 300 mg/2 mL subcutaneous 300 mg subcut WEEKLY 02/22/23 03/08/23 pen injector (Dupixent) Allergies Allergy/AdvReac Type Severity Reaction Status Date / Time adhesive tape Allergy Severe Other Verified 03/08/23 13:56 Review of Systems Review of Systems: A 10 system review of systems was completed on the patient and is negative except for what is stated in the HPI. Nursing and ancillary documentation was reviewed. [facility] Past Medical History Medical History (Updated 08/19/23 @ 15:14 by Donaldo Gonzales MD) Adult hypothyroidism Essential (primary) hypertension Hx of cancer of lung Mixed hyperlipidemia Family History Family History Mother Cerebrovascular accident Family history of malignant neoplasm Father Family history of congestive heart failure Other Diabetes mellitus Family history of cardiovascular disease Hypertension Social History Social History Smoking status: Never smoker Second hand tobacco smoke exposure: No Alcohol intake: current Drinks per week: 3 Substance use: never Substance use type: does not use Lack of Transportation: No Lack of Food: Never True Current Housing: I Have Housing Concerned About Future Housing: No Difficulty Paying Gas/Electric Bills: No Difficulty Paying for Meds: No Currently Unemployed: No Education: Master's Degree or Higher Difficulty w/ Childcare or Family Care: No Exam Narrative: GENERAL: Well-appearing, well-nourished, and in no acute distress. HEAD: Normocephalic, atraumatic. EYES: PERRLA and EOMI. ENT: Nares clear, no rhinorrhea or epistaxis. Mucous membranes moist. NECK: Supple. CHEST: Clear to auscultation. No respiratory distress. HEART: Regular rate and rhythm. No murmur heard. Normal peripheral pulses. ABDOMEN: Soft, nontender, nondistended, normal active bowel sounds. EXTREMITIES: Normal range of motion. No edema. SKIN: Warm, dry, no rash. NEURO: No focal deficits. Alert and oriented x3. PSYCH: Normal mood and affect. Course Vital Signs Vital signs: Vital Signs Temperature 36.4 C 08/19/23 13:29 Pulse Rate 79 08/19/23 13:29 Respiratory Rate 16 08/19/23 13:29 Blood Pressure 178/63 H 08/19/23 13:29 Pulse Oximetry 100 08/19/23 13:29 Temperature 36.4 C 08/19/23 13:29 Pulse Rate 79 08/19/23 13:29 Respiratory Rate 16 08/19/23 13:29 Blood Pressure 178/63 H 08/19/23 13:29 Pulse Oximetry 100 08/19/23 13:29 Medical Decision Making MDM Narrative Medical decision making narrative: Differential diagnosis includes ureterolithiasis, colitis, diverticulitis, intra-abdominal infection, pancreatitis laboratory studies were obtained on the patient showed a white count of 7.6 electrolytes were within normal limits with a creatinine of 0.9 and a BUN of 13 liver enzymes were within normal limits urinalysis showed +leukocyte esterase greater than 100 red blood cells and 11-20 white blood cells in the urine is negative for bacteria and negative for nitrate. Patient received several doses of IV pain medications in the emergency department and is feeling better but still having some pain CT scan showed 8 mm proximal left
[2023-08-19] MEDS: SODIUM CHLORIDE 0.9% IV 1,000 ML 125 ML IV CONT (15:43)
--- NOTE | 2023-08-19 15:45 | PM.IMHP ---
H&P: HPI History of Present Illness Date/Time: 08/19/23 15:45 Chief Complaint: Left flank pain. Narrative: This is a very pleasant 62-year-old female with hypertension, hyperlipidemia, and hypothyroidism who presented to the emergency department for evaluation left flank pain. The patient provides the following history. Yesterday afternoon she developed discomfort in the left flank and as the evening progressed she developed intermittent sharp and shooting pain radiating into the left low back and left lower quadrant. She denies aggravating or alleviating factors. Associated symptoms include hematuria, nausea, and vomiting. She has never had similar symptoms but reports having been told that she had small kidney stones on previous imaging. She denies fever, chills, sweats, and dysuria. In the ED: She was afebrile on arrival with a blood pressure of 178/63. The remainder of her vital signs were stable. CMP and CBC were pretty unremarkable. Urine was positive for 2+ protein, 3+ blood, 1+ leukocyte esterase, greater than 100 RBC, and [address] of the abdomen pelvis showed an 8 mm proximal left ureteral stone with [id number] left hydronephrosis. She was given IV fluids, antiemetics, and analgesics in addition to 1 g of ceftriaxone. She is being admitted in this setting for supportive care neurology consultation. Review of Systems Review of Systems: 12 systems were reviewed and are negative except for as per HPI. [facility] Past Medical History Medical History (Updated 08/19/23 @ 21:50 by Genet Martinez PA-C) Adult hypothyroidism Essential (primary) hypertension Left bundle branch block Noted on EKG in 2010 prior to right lower lobectomy. Per patient report, stress test was unremarkable. Lung cancer (2009) Stage I non-small cell lung cancer status post right lower lobectomy. Mixed hyperlipidemia Surgical History Surgical History (Updated 08/19/23 @ 15:50 by Genet Martinez PA-C) History of lobectomy of lung (2009) Right lower lobectomy for stage I non-small cell lung cancer. Family History Family History Mother Cerebrovascular accident Family history of malignant neoplasm Father Family history of congestive heart failure Other Diabetes mellitus Family history of cardiovascular disease Hypertension Social History Social History (Updated 08/19/23 @ 15:51 by Genet Martinez PA-C) Social History: Surrogate medical decision maker: Al Brown, spouse. Code status: Full code. Smoking status: Never smoker Second hand tobacco smoke exposure: No Alcohol intake: current Drinks per week: 4 Substance use: never Substance use type: does not use Do You Feel Safe in your Home?: Yes Lack of Transportation: No Lack of Food: Never True Current Housing: I Have Housing Concerned About Future Housing: No Difficulty Paying Gas/Electric Bills: No Difficulty Paying for Meds: No Currently Unemployed: No Education: Master's Degree or Higher Difficulty w/ Childcare or Family Care: No Spiritual care concerns: No Meds Home Medications and Allergies Home Medications Medication Instructions Recorded Confirmed Type dupilumab 300 mg/2 mL subcutaneous 300 mg subcut [id number] 02/22/23 08/19/23 History pen injector (Dupixent) levothyroxine 88 mcg tablet 88 mcg PO DAILY #90 tabs 03/08/23 08/19/23 Rx (Synthroid) [id number]-[id number]-kzxr-HC 3.5 1 applic EACH EYE TID PRN eye 03/08/23 08/19/23 Rx mg-400-10,000 unit/g-1 % eye itching #3.5 grams ointment amlodipine 5 mg tablet 5 mg PO HS 08/19/23 08/19/23 History pravastatin 40 mg tablet 40 mg PO HS 08/19/23 08/19/23 History Allergies Allergy/AdvReac Type Severity Reaction Status Date / Time adhesive tape Allergy Severe Other Verified 03/08/23 13:56 Vital Signs Vital Signs - 24 hr 08/19/23 13:29 Temperature 97.6 F Pulse Rate 79 Respiratory R
[2023-08-19 15:49] VITALS: BP 174/77; PULSE 87; RESP 14; TEMP 37.1; O2SAT 97
[2023-08-19] MEDS: HYDROmorphone HCL INJ (*CRX) 1 MG/ML SYR 0.5 MG IV PUSH ×3 (16:22→22:36)
[2023-08-19 17:58] VITALS: BMI 31.0
--- NOTE | 2023-08-19 18:03 | PC.NURSE ---
This patient, Ivory Brown, was admitted to [facility] Surg Room 326-01. Patient/family oriented to hospital policies and general routines including ID bracelet, bed and alarms, visiting hours, pain management, procedures, bathroom and other care routines, personal items, smoking policy, room service/diet, and visiting hours. Information on how to activate the Rapid Response Team has been discussed. Patient/Family are encouraged to report perceived risks to care and to ask questions if they do not understand what they are told or what they should do.
[2023-08-19 20:55] VITALS: PULSE 87; RESP 14; O2SAT 97
[2023-08-19 21:48] VITALS: BP 147/66; PULSE 66; RESP 15; TEMP 36; O2SAT 96
[2023-08-19] MEDS: amLODIPine BESYLATE 5 MG TABLET PO (22:28)
[2023-08-19] MEDS: PRAVASTATIN SODIUM 20 MG TABLET 40 MG PO (22:28)
[2023-08-20] VITALS (9 sets, daily range): BP systolic 115–175; BP diastolic 60–76; PULSE 61–74; RESP 12–20; TEMP 36–36.8; O2SAT 95–100
[2023-08-20] MEDS: SODIUM CHLORIDE 0.9% IV 1,000 ML 125 ML IV CONT (00:02)
[2023-08-20] MEDS: HYDROmorphone HCL INJ (*CRX) 1 MG/ML SYR 0.5 MG IV PUSH (04:37)
[2023-08-20] MEDS: LEVOTHYROXINE SODIUM 88 MCG TABLET PO (06:04)
[2023-08-20 07:05] LABS: Anion Gap 11 mmol/L (4-12); Basophils Percent Auto 0.2 % (0.2-1.2); Blood Urea Nitrogen 9 mg/dL (7-17); Calcium 8.6 mg/dL (8.4-10.2); Carbon Dioxide 22 mmol/L (22-30); Chloride 101 mmol/L (98-107); Eosinophils Percent Auto 0.3 % (0-4.4); Estimated CRCL calculation 51 ml/min; Estimated Glomerular Filt Rate 56; Glucose 116 mg/dL (65-110); Hematocrit 37.6 % (37.0-47.0); Hemoglobin 12.4 g/dL (12.0-15.0); Immature Granulocyte Absolute 0.05 K/mm3 (0.00-0.031); Immature Granulocyte Percent A 0.5 % (0-0.5); Lymphocytes Absolute Auto 0.77 K/mm3 (0.9-3.2); Lymphocytes Percent Auto 7.2 % (18.3-44.2); Magnesium 1.9 mg/dL (1.6-2.3); Mean Corpuscular Hemoglobin 30.8 pg (26-34); Mean Corpuscular Volume 93.5 fl (80-100); Mean Platelet Volume 10.6 fl (7.4-10.4); Monocytes Absolute Auto 0.7 K/mm3 (0.1-0.6); Monocytes Percent Auto 6.7 % (2.6-8.5); Neutrophils Absolute Auto 9.1 K/mm3 (1.3-6.7); Neutrophils Percent Auto 85.1 % (45.5-73.1); Platelet Count Result 183 k/mm3 (150-375); Potassium 3.5 mmol/L (3.4-5.0); Red Blood Count 4.02 M/mm3 (4.2-5.4); Red Cell Distribution Width 12.3 % (11.5-14.5); Sodium 134 mmol/L (137-145); White Blood Count 10.6 K/mm3 (4.5-10.0)
--- NOTE | 2023-08-20 07:13 | WPDHPUPDATE1 ---
History and Physical Update Update Date/Time: 08/20/23 07:13 History and Physical has been reviewed, including an updated exam of the patient. There are NO changes in the patient's condition. Risks, benefits, and alternatives have been discussed and questions answered. Patient agrees to proceed with procedure.
--- NOTE | 2023-08-20 07:22 | WPDURCON ---
Assessment and Plan Assessment and plan (1) Hydronephrosis of left kidney: Code(s): N13.30 - Unspecified hydronephrosis Status: Acute (2) Left ureteral stone: Code(s): N20.1 - Calculus of ureter Status: Acute Assessment and Plan: plan for cystoscopy, left rpg, left ureter stent placement reviewed r/b/a/n of procedure and potential complications in detail. risks including but not limited to bleeding, infection, trauma to urinary tract inability to place stent and need for PCN tube, she understands we are not treating stone today and she will require definite stone management down the road, with ESWL. Pt understands stents are temporary and can cause kidney damage if she fails to have it removed, understands pain from stent and irritative voiding symptoms can arise from having a stent in, additionally reviewed anesthesia and positioning complications of IN, stroke, blood clots, disability. She voiced understanding all, ? answered Urology Consult Note HPI Date Seen: 08/20/23 Requesting Physician: Moises Jain MD Primary Care Provider: Emerson Galvin MD Consult Narrative Narrative: Ivory Brown is a 62 year old female with hx of hypothyroidism, lung ca s/p lobectomy who presented to ER with 1 day hx of left sided renal colic. She had associated nausea, no vomiting, no prior stones. No fevers/chills, no CP/SOB. CT showed 8 mm left proximal ureter stone. Denies taking anticoagulants. Pain improved with IV narcotics. No hematuria or dysuria. States she has seen Dr Curtis in the past for cystoscopy. She was placed on rocephin in ER. Review of Systems Constitutional: Constitutional: Reports no additional constitutional complaints Eyes: Eyes: Reports no additional eye complaints ENT: Reports system reviewed and no additional complaints, except as documented Cardiovascular: Cardiovascular: Reports no additional cardiovascular complaints Respiratory: Respiratory: Reports as per HPI and Reports no additional respiratory complaints Gastrointestinal: Gastrointestinal: Reports as per HPI and Reports no additional gastrointestinal complaints Genitourinary: Genitourinary: Reports no additional female genitourinary complaints Musculoskeletal: Musculoskeletal: Reports no additional musculoskeletal complaints and Reports as per HPI Integumentary/Breasts: Skin/Breast: Reports system reviewed and no additional complaints, except as docu Neurologic: Reports system reviewed and no additional complaints, except as documented Psychiatric: Psychiatric: Reports no additional psychiatric complaints PMFSH Past Medical History Medical History (Updated 08/19/23 @ 21:50 by Genet Martinez PA-C) Adult hypothyroidism Essential (primary) hypertension Left bundle branch block Noted on EKG in 2010 prior to right lower lobectomy. Per patient report, stress test was unremarkable. Lung cancer (2009) Stage I non-small cell lung cancer status post right lower lobectomy. Mixed hyperlipidemia Surgical History Surgical History (Updated 08/19/23 @ 15:50 by Genet Martinez PA-C) History of lobectomy of lung (2009) Right lower lobectomy for stage I non-small cell lung cancer. Family History Family History Mother Cerebrovascular accident Family history of malignant neoplasm Father Family history of congestive heart failure Other Diabetes mellitus Family history of cardiovascular disease Hypertension Social History Social History (Updated 08/19/23 @ 15:51 by Genet Martinez PA-C) Social History: Surrogate medical decision maker: Al Brown, spouse. Code status: Full code. Smoking status: Never smoker Second hand tobacco smoke exposure: No Alcohol intake: current Drinks per week: 4 Substance use: never Substance use type: does not use Do You Feel Safe in your Home?: Yes Lack of Transportation: No
[2023-08-20] MEDS: LACTATED RINGERS 1,000 ML 30 ML IV CONT (07:30)
--- NOTE | 2023-08-20 07:32 | WPDANESEPPF ---
Anes - Initial Pre Proc Eval Procedure: Operation Date: 08/20/23 07:30 Proposed Procedures p Cysto, RPG, Stone Ext, Stent Placement(Left) - Jose Ordoñez MD Date/Time: 08/20/23 07:32 Surgeon: Moises Jain MD Pre Op Diagnosis: Ureterolithiasis Patient Data Age: 62 Gender: F Height: 1.6 m Weight: 78.8 kg Last Vital Signs Temp 36.0 C L 08/20/23 06:00 Pulse 65 08/20/23 06:00 Resp 15 08/20/23 06:00 BP 162/66 H 08/20/23 06:00 Pulse Ox 99 08/20/23 06:00 O2 Del Method Room Air 08/19/23 20:55 Allergies Allergy/AdvReac Type Severity Reaction Status Date / Time adhesive tape Allergy Severe Other Verified 03/08/23 13:56 Home Medications Medication Instructions Recorded Confirmed Type dupilumab 300 mg/2 mL subcutaneous 300 mg subcut [id number] 02/22/23 08/19/23 History pen injector (Dupixent) levothyroxine 88 mcg tablet 88 mcg PO DAILY #90 tabs 03/08/23 08/19/23 Rx (Synthroid) sxrwexcg-[id number]-gnik-HC 3.5 1 applic EACH EYE TID PRN eye 03/08/23 08/19/23 Rx mg-400-10,000 unit/g-1 % eye itching #3.5 grams ointment amlodipine 5 mg tablet 5 mg PO HS 08/19/23 08/19/23 History pravastatin 40 mg tablet 40 mg PO HS 08/19/23 08/19/23 History Laboratory Tests 08/19/23 08/20/23 14:22 06:08 WBC 7.6 K/mm3 10.6 H K/mm3 (4.5-10.0) (4.5-10.0) RBC 4.22 M/mm3 4.02 L M/mm3 (4.2-5.4) (4.2-5.4) Hgb 13.2 g/dL 12.4 g/dL (12.0-15.0) (12.0-15.0) Hct 38.0 % 37.6 % (37.0-47.0) (37.0-47.0) MCV 90.0 fl 93.5 fl (80-100) (80-100) MCH 31.3 pg 30.8 pg (26-34) (26-34) MCHC 34.7 g/dl 33.0 g/dl (32-36) (32-36) RDW 12.4 % 12.3 % (11.5-14.5) (11.5-14.5) Plt Count 200 k/mm3 183 k/mm3 (150-375) (150-375) MPV 10.2 fl 10.6 H fl (7.4-10.4) (7.4-10.4) Immature Gran % (Auto) 0.4 % 0.5 % (0-0.5) (0-0.5) Neut % (Auto) 72.6 % 85.1 H % (45.5-73.1) (45.5-73.1) Lymph % (Auto) 18.7 % 7.2 L % (18.3-44.2) (18.3-44.2) Bates % (Auto) 5.8 % 6.7 % (2.6-8.5) (2.6-8.5) Eos % (Auto) 1.8 % 0.3 % (0-4.4) (0-4.4) Baso % (Auto) 0.7 % 0.2 % (0.2-1.2) (0.2-1.2) Lymph # (Auto) 1.43 K/mm3 0.77 L K/mm3 (0.9-3.2) (0.9-3.2) Bates # (Auto) 0.4 K/mm3 0.7 H K/mm3 (0.1-0.6) (0.1-0.6) Eos # (Auto) 0.1 K/mm3 0.0 K/mm3 (0-0.3) (0-0.3) Baso # (Auto) 0.1 K/mm3 0.0 K/mm3 (0.0-0.1) (0.0-0.1) Abs Immat Gran (auto) 0.03 K/mm3 0.05 H K/mm3 (0.00-0.031) (0.00-0.031) Absolute Neuts (auto) 5.5 K/mm3 9.1 H K/mm3 (1.3-6.7) (1.3-6.7) Absolute Nucleated RBC 0.000 K/mm3 0.000 K/mm3 (0.0-0.012) (0.0-0.012) Nucleated RBC % 0.0 % 0.0 % (0.0-0.2) (0.0-0.2) Sodium 137 mmol/L 134 L mmol/L (137-145) (137-145) Potassium 3.8 mmol/L 3.5 mmol/L (3.4-5.0) (3.4-5.0) Chloride 102 mmol/L 101 mmol/L (98-107) (98-107) Carbon Dioxide 25 mmol/L 22 mmol/L (22-30) (22-30) Anion Gap 10 mmol/L 11 mmol/L (4-12) (4-12) BUN 13 mg/dL 9 mg/dL (7-17) (7-17) Creatinine 0.90 mg/dL 1.00 mg/dL (0.7-1.0) (0.7-1.0) Estim Creat Clear Calc 58 ml/min 51 ml/min Estimated GFR > 60 56 L (59 - ) (59 - ) Glucose 114 H mg/dL 116 H mg/dL (65-110) (65-110) Calcium 9.3 mg/dL 8.6 mg/dL (8.4-10.2) (8.4-10.2) Magnesium 1.9 mg/dL (1.6-2.3) Total Bilirubin 0.5 mg/dL (0.2-1.3) AST 26 U/L (14-36) ALT 22 U/L (6-35) Alkaline Phosphatase 83 U/L (38-126) Total Protein 7.0 g/dL (6.3-8.2) Albumin 4.6 g/dL (3.5-5.1) Urine Color Dark yellow (Yellow) Urine Appearance Turbid H (Clear) Urine pH 5.5 (5.0-9.0) Ur Specific [place] 1.026 (1.001-1.035) Urine Protein 2+ H mg/dL (Negative) Urine Glucose (UA) Negative mg/dL (Negative) Urine Ketones Negative mg/dL (Negative) Ur Blood (Man) 3+ H (N
--- NOTE | 2023-08-20 07:54 | W.PM.PROC2 ---
Procedure Note - Detailed Date of Procedure 08/20/23 Pre-op Diagnosis Ureterolithiasis Post-op Diagnosis Same Procedure Performed cystoscopy, left retrograde pyelogram left ureteral stent placement Surgeon Jose Ordoñez MD Anesthesia General Indications left ureter stone Findings expected proximal ureter stone, , was pushed back into renal pelvis Description of Procedure Description of procedure: The patient was brought back to the operating room, was given a general anesthesia via LMA, was prepped and draped in standard surgical fashion in the dorsal lithotomy position with Betadine scrub to the genitalia. She is currently receiving IV Rocephin on the medical floor. All pressure points padded, after appropriate patient identifiers and time-out was performed, a 22 Fr cystoscope was inserted into the bladder, the bladder itself appeared normal, no tumors, lesions, or masses in the bladder, she had single orthotopic ureteral orifices effluxing clear yellow urine, on addiction specialist fluoroscopy a radio-opaque density was easily identified in the left proximal ureter, a sensor wire was then inserted and navigated past the stone, a 5 Fr open ended catheter was then threaded over the wire into the kidney and a gentle retrograde was performed to outline the collecting system, she had mild hydronephrosis, the stone had been pushed back into the renal pelvis, the wire was replaced and a 4.8 Fr variable length stent was deployed, good curl seen fluoroscopically in the upper pole of the kidney and both fluoroscopically and endoscopically in the bladder, the bladder was drained and all instruments and wires were removed and she was taken to PACU in stable condition. Implants left 4.8 Fr variable length stent Condition Stable Disposition PACU
[2023-08-20] MEDS: LIDOCAINE HCL 2% GEL UROJET 10 ML PKG MUCOUS MEM (07:58)
--- NOTE | 2023-08-20 11:42 | PM.IMPN ---
Progress Note: A&P Assessment and Plan (1) Left ureteral stone: Code(s): N20.1 - Calculus of ureter Status: Acute Assessment and Plan: Pain is adequately controlled after stent placement Possible discharge tonight or tomorrow (2) Hydronephrosis of left kidney: Code(s): N13.30 - Unspecified hydronephrosis Status: Acute Assessment and Plan: Left ureteral stent in place (3) Essential (primary) hypertension: Code(s): I10 - Essential (primary) hypertension Status: Acute Assessment and Plan: Refused and control adequate Subjective Date/time seen: 08/20/23 11:42 Interval history: Had left ureteral stent placed mild hypogastric discomfort. Complaints of pain. No shortness of breath. No nausea or vomiting. Still very sleepy from certain whether she wants to go home tonight or tomorrow. Will depend upon her daughter can stay with her overnight as her is out of town. Review of Systems Review of Systems: All systems reviewed & are unremarkable except as noted in HPI and below Exam Narrative: General: Alert. NAD. HEENT: EOMI. Sclera anicteric. Tacky mucous membranes. Neck: No JVD Respiratory: Lungs are clear to auscultation bilaterally. Cardiovascular: Regular rate and rhythm with S1-S2. Gastrointestinal: Abdomen is nondistended with positive bowel sounds. Nontender. No mass. Skin: Warm and dry. No rash or lesions on limited exam. Extremities: No cyanosis, clubbing, or edema. Radial and pedal pulses intact. Neurological: Alert. Cranial nerves 2-12 are grossly intact to visual inspection. Psychiatric: Pleasant and cooperative with normal mood and affect. Judgment and insight intact. Objective Data Vital Signs Vital Signs: Vital Signs - 24 hr 08/19/23 13:29 08/19/23 15:49 08/19/23 15:00 Temperature 97.6 F 98.7 F Pulse Rate 79 87 75 Respiratory Rate 16 14 12 Blood Pressure 178/63 H 174/77 H 170/65 H Pulse Oximetry 100 97 100 Oxygen Delivery Oxygen Flow Rate 08/19/23 21:48 08/19/23 20:55 08/20/23 06:00 Temperature 96.8 F L 96.8 F L Pulse Rate 66 87 65 Respiratory Rate 15 14 15 Blood Pressure 147/66 H 162/66 H Pulse Oximetry 96 97 99 Oxygen Delivery Room Air Oxygen Flow Rate 08/20/23 08:01 08/20/23 08:15 08/20/23 08:30 Temperature 98.2 F Pulse Rate 66 61 65 Respiratory Rate 12 12 20 Blood Pressure 121/61 115/60 135/67 Pulse Oximetry 100 100 95 Oxygen Delivery Simple Face Mask Simple Face Mask Room Air Oxygen Flow Rate 10 6 08/20/23 11:32 Temperature Pulse Rate Respiratory Rate Blood Pressure Pulse Oximetry 95 Oxygen Delivery Room Air Oxygen Flow Rate Intake/Output Intake/Output: Intake & Output 08/17/23 08/18/23 08/19/23 08/20/23 23:59 23:59 23:59 23:59 Intake Total 1050 1070 Balance 1050 1070 Meds/Results Medications: Active Medications Generic Name Dose Route Start Last Admin Trade Name Freq PRN Reason Stop Dose Admin Acetaminophen 650 mg 08/19/23 15:13 Acetaminophen 325 Mg Tablet PO Q4H PRN Mild Pain (1-3) or Fever Amlodipine Besylate 5 mg 08/19/23 22:00 08/19/23 22:28 Amlodipine Besylate 5 Mg Tablet PO 5 mg HS FRENCH Administration Hydromorphone HCl 0.5 mg 08/19/23 19:06 08/20/23 04:37 Hydromorphone Hcl Inj (*Crx) 1 Mg/Ml Syr IV PUSH 0.5 mg Q3H PRN Administration Pain Rated 7-10 Sodium Chloride 1,000 mls @ 125 mls/hr 08/19/23 15:15 08/20/23 09:07 Normal Saline Iv IV CONT Not Given .Q8H FRENCH Ceftriaxone Sodium 1 gm in 50 mls @ 100 mls/hr 08/20/23 15:00 Rocephin 1 Gm/Ns 50 Ml IVPB Q24H FRENCH Levothyroxine Sodium 88 mcg 08/20/23 06:30 08/20/23 06:04 Levothyroxine Sodium 88 Mcg Tablet PO 88 mcg DAILY@0630 FRENCH Administration Miscellaneous Information 1 each 08/20/23 00:01 08/20/23 09:11 Med Rec Order Clarification XX 09/19/23 00:00 Not Given CLARIFY FRENCH Non-Formulary Me
--- NOTE | 2023-08-20 13:17 | PM.DS ---
DS: Admitting Diagnosis Discharge Date 08/21/2023 Admitting Diagnosis Left ureteral stone DS: Discharge Diagnosis Discharge Diagnosis (1) Left ureteral stone: Code(s): N20.1 - Calculus of ureter Status: Acute Assessment and Plan: Pain is adequately controlled after stent placement Home this afternoon (2) Hydronephrosis of left kidney: Code(s): N13.30 - Unspecified hydronephrosis Status: Acute Assessment and Plan: Left ureteral stent in place (3) Essential (primary) hypertension: Code(s): I10 - Essential (primary) hypertension Status: Acute Assessment and Plan: Refused and control adequate DS: Summary Hospital Course Reason for hospitalization: Left flank pain Hospital Course: Presented with sudden onset of left flank to lower quadrant pain. CT abdomen pelvis revealed left ureteral stone with left hydronephrosis.Had left ureteral stent placed mild hypogastric discomfort. No complaints of pain. No shortness of breath. No nausea or vomiting. She wants to go home tonight as her daughter is willing to stay with her while her is out [place] [address] normal H&H and platelet count and slightly low sodium of 134 with normal electrolytes and creatinine magnesium and LFTs otherwise. Urine was turbid with 2+ protein 3+ blood 1+ urobilinogen greater than 100 red cells per high-power field and 11-20 white cells prior prior field with no bacteria seen. Time Spent with Patient Time attestation: Total time spent providing and/or coordinating discharge services: Exam Narrative: General: Alert. NAD. HEENT: EOMI. Sclera anicteric. Tacky mucous membranes. Neck: No JVD Respiratory: Lungs are clear to auscultation bilaterally. Cardiovascular: Regular rate and rhythm with S1-S2. Gastrointestinal: Abdomen is nondistended with positive bowel sounds. Nontender. No mass. Skin: Warm and dry. No rash or lesions on limited exam. Extremities: No cyanosis, clubbing, or edema. Radial and pedal pulses intact. Neurological: Alert. Cranial nerves 2-12 are grossly intact to visual inspection. Psychiatric: Pleasant and cooperative with normal mood and affect. Judgment and insight intact. DS: Data Data Completed and Pending Labs on day of discharge: Labs from last 24 hours 08/20/23 08/19/23 06:08 14:22 WBC 10.6 H 7.6 RBC 4.02 L 4.22 Hgb 12.4 13.2 Hct 37.6 38.0 MCV 93.5 90.0 MCH 30.8 31.3 MCHC 33.0 34.7 RDW 12.3 12.4 Plt Count 183 200 MPV 10.6 H 10.2 Immature Gran % (Auto) 0.5 0.4 Neut % (Auto) 85.1 H 72.6 Lymph % (Auto) 7.2 L 18.7 [place] % (Auto) 6.7 5.8 Eos % (Auto) 0.3 1.8 Baso % (Auto) 0.2 0.7 Lymph # (Auto) 0.77 L 1.43 [place] # (Auto) 0.7 H 0.4 Eos # (Auto) 0.0 0.1 Baso # (Auto) 0.0 0.1 Abs Immat Gran (auto) 0.05 H 0.03 Absolute Neuts (auto) 9.1 H 5.5 Absolute Nucleated RBC 0.000 0.000 Nucleated RBC % 0.0 0.0 Sodium 134 L 137 Potassium 3.5 3.8 Chloride 101 102 Carbon Dioxide 22 25 Anion Gap 11 10 BUN 9 13 Creatinine 1.00 0.90 Estim Creat Clear Calc 51 58 Estimated GFR 56 L > 60 Glucose 116 H 114 H Calcium 8.6 9.3 Magnesium 1.9 Total Bilirubin 0.5 AST 26 ALT 22 Alkaline Phosphatase 83 Total Protein 7.0 Albumin 4.6 Urine Color Dark yellow Urine Appearance Turbid H Urine pH 5.5 Ur Specific [place] 1.026 Urine Protein 2+ H Urine Glucose (UA) Negative Urine Ketones Negative Ur Blood (Man) 3+ H Urine Nitrate Negative Urine Bilirubin 1+ H Urine Urobilinogen 1.0 Add Ur Microanalysis Reviewed Leukocyte Esterase Rfl 1+ H Urine RBC >100 H Urine WBC 11-20 H Ur Squamous Epith Cells None seen Urine Bacteria None seen Urine Casts 0-2 Discharge Plan Discharge Consulting providers: Jose Ordoñez Discharging Clinician: Moises Jain Patient Disposition: Home, Self-Care Activity: n
== END 2023-08-20 14:20 | disposition home or self-care (01) ==
LOC: ANHED 15:14 → ANH3MEDSUR 16:09
PROVIDERS: Physician Assistant; Urology; Admitting Provider Internal Medicine; Emergency Provider Emergency Medicine; PCP Family Medicine; Visit Provider Internal Medicine
PROC: (CPT 52352; principal; 2023-08-20 07:30)
DX: N20.1 Calculus of ureter (principal); N13.30 Unspecified hydronephrosis; R31.9 Hematuria, unspecified; E03.9 Hypothyroidism, unspecified; I10 Essential (primary) hypertension; E78.2 Mixed hyperlipidemia; Z85.118 Personal history of other malignant neoplasm of bronchus and lung; Z90.2 Acquired absence of lung [part of]
CPT/HCPCS: 52332; 36415; 71045; 74176; 74420; 80048; 80053; 81001; 83735; 85025; 87086; 96361; 96374; 96375; 96376; 99285; A9270; C1758; C1769; C2617; G0378; J0696; J1100; J1170; J2250; J2270; J2405; J2704; J3010; J7030; J7120; Q9966

== ENCOUNTER 2023-10-13 10:17 | Outpatient (CLI) | payer OTHER, SELFPAY ==
--- NOTE | ~2023-10-13 | XR_ITS ---
Clinical Indication: Cough PA and lateral views of the chest: Comparison: 08/20/2023 Findings: The lungs are clear, without evidence of focal consolidation or pleural effusion. Cardiome diastinal silhouette is within normal limits. Bones and soft tissues are unremarkable. Impression: Normal chest. Reviewed, dictated and finalized at location . Impression: Normal chest.
== END 2023-10-13 10:18 | disposition home or self-care (01) ==
PROVIDERS: PCP Nurse Practitioner; Visit Provider Nurse Practitioner
DX: R05.9 Cough, unspecified (principal); R06.2 Wheezing
CPT/HCPCS: 71046

== ENCOUNTER 2024-03-15 01:09 | Day surgery (SDC) | payer OTHER, SELFPAY ==
[2024-03-04 08:27] VITALS: BMI 28.3
--- OUTSIDE RECORDS SUMMARY | 2024-03-15 01:13 | XMS_ITS | Encounter Summary ---
Author Organization [facility] Address [address] [place] [address] Care Team Providers Care Shingle Cutter Name Role Phone Emanuel Hanson MD Primary Care Provider [phone] Encounter Details Date Type Department Care Team (Late st Contact Info) Description 11/11/2022 Lab Requisition [facility] - DermPath Lab [address] [place] [address] Lalito Watts MD [address] [place] [address] Social History Tobacco Use Types Packs/Day Years Used Date Smoking Tobacco: Never Assessed Sex and Gender Information Value Date Recorded Sex Assigned at Not on file Gender Identity Not on file Sexual Orientation Not on file documented as of this encounter Plan of Treatment Not on file documented as of this encounter Procedures Procedure Name Priority Date/Time Associated Diagnosis Comments DERMATOPATHOLOGY Routine 11/09/2022 12:0 0 AM CDT documented in this encounter Results * DERMATOPATHOLOGY (11/09/2022 12:00 AM CDT) Case Report Dermatopathology Report Case: [id number] Authorizing Provider: Lalito Watts MD Collected: 11/09/2022 12:00 AM Ordering Location: [facility] DermPath Lab Received: 11/11/2022 07:34 AM Pathologist: Aixa Hernandez MD Specimen: Skin, right elbow 4:45 PM CDT DERMATOPATHOLOGY LABORATORY Final Diagnosis Specimen A. SKIN, right elbow: PSORIASIFORM DERMATITIS (L44.8) (see microscopic description and comment) 3 4:45 PM CDT DERMATOPATHOLOGY LABORATORY Clinical History LP Poss. 3 4:45 PM CDT DERMATOPATHOLOGY LABORATORY Gross Description Specimen A: Received is one formalin filled container labeled with the patient's name and designated right elbow. The specimen consists of a shave biopsy measuring 6x4x1 mm. Jar 0. 3 4:45 PM T DERMATOPATHOLOGY LABORATORY Microscopic Description Specimen A. SKIN, right elbow: There is psoriasiform hyperplasia of the epidermis with focal parakeratosis and spongiosis. There is a superficial, mainly lymphohistiocytic inflammatory infiltrate. Rare eosinophils are present. Scattered intraepidermal Langerhans cell microabscesses are seen. Focal interface changes are noted. IL-36 immunostain reveals patchy staining in the superficial aspect of the epidermis. Grocott's methenamine silver (GMS) stain is negative for fungal elements in the sections examined. COMMENT: The histological differential diagnosis includes a contact dermatitis, which is somewhat favored; a drug reaction; a chronic eczematous dermatitis; and less likely early / partially treated psoriasis. 3 4:45 PM T DERMATOPATHOLOGY LABORATORY Disclaimer An external and internal positive and negative controls are appropriate for the histochemical, immunohistochemical and immunofluorescence stain(s) in this case (if any), except where stated explicitly. The performance characteristics of the stain(s) cited in this report were developed and its performance characteristic determined by the Dermatopathology Laboratory at [facility], directed by Dr. Pieter Montalvo. These tests need not be, and therefore are not, approved by the [place] Food and Drug Administration. The tests are used for clinical purposes. Billing Codes Specimen Charges Stain Charges 14871 1 [id number] 1 1 3 4:45 PM CDT DERMATOPATHOLOGY LABORATORY Embedded Images 3 4:45 PM CDT DERMATOPATHOLOGY LABORATORY Pathology/Cytolog y TISSUE SPECIMEN FROM SKIN / Unknown 11/09/2022 11/11/2022 7:34 AM CDT Lalito Watts MD LAB - PATHOLOGY/CYTO LOGY ORDERABLES DERMATOPATHOLOGY LABORATORY [facility] - Department of Dermatology [facility] Specialized Medicine [facility] [facility], [address] [phone] documented in this encounter Visit Diagnoses Not on filedocumented in this encounter Care Teams Shingle Cutter Relationship Specialty Start Date End Date Emanuel Hanson MD [address] [place] [address] PCP - General 05/06/18 documented as of this encounter
--- OUTSIDE RECORDS SUMMARY | 2024-03-15 01:13 | XMS_ITS | Clinical Summary ---
Author Organization [facility] Address [address] [place] [address] Care Team Providers Care Blind Hanger Name Role Phone Emerson Galvin MD Primary Care Provider [phone] Allergies Active Allergy Reactions Criticality Noted Date Comments Adhesive Hives Medium 07/19/2018 Medications neomycin-polymy kasi-dexamethaso ne (MAXITROL) 3.5mg/mL-10,000 unit/mL-0.1 % ophthalmic suspension INT 1 GTT INTO OU QID FOR 7 DAYS. SHAKE WELL 0 06/29/2018 Active SYNTHROID 75 mcg tablet 04/17/2018 Active pravastatin (PRAVACHOL) 40 mg tablet 04/17/2018 Active tobramycin (TOBREX) 0.3 % ophthalmic solution 1 06/20/2018 Active amLODIPine (NORVASC) 5 mg tablet 08/11/2019 Active azelastine (OPTIVAR) 0.05 % ophthalmic solution INSTILL 1 DROP IN EACH EYE TWICE DAILY 10/16/2020 Active Active Problems Problem Noted Date Diagnosed Date Breast pain 08/20/2019 Fibrocystic breast changes 07/19/2018 Immunizations Name Administration Dates Next Due Flucelvax Influenza Quad 11/30/2016 Influenza, Quadrivalent, Shae l Culture-based MDCK, Preservative Free, Antibiotic Free, Intramuscular 11/26/2019 Influenza, Quadrivalent, Spl it, Intramuscular 12/05/2018 Influenza, Quadrivalent, Spl it, Preservative Free, Intramuscular 12/05/2018,12/12/2017,12/11/2017 Influenza, Trivalent, Preser vative Free, Intramuscular 12/17/2015,12/14/2014 Influenza, Unspecified 12/05/2012,11/21/2011 Moderna SARS-CoV-2 Monovalen t Vaccination (12+ YRS) 04/16/2020,03/18/2020 Tdap 09/15/2016 Medical History Medical History Date Comments Lung cancer (HCC) Family History Medical History Relation Name Comments Emphysema Father Family history of emphysema - (Added by TW Conv) Heart failure Father Bladder Cancer Mother Diabetes Mother Hypertension Mother Stroke Mother Uterine cancer Mother Emphysema Other Family history of emphysema - (Added by TW Conv) Breast cancer Neg Hx Ovarian cancer Neg Hx Thyroid cancer Neg Hx Relation Name Status Comments Father Mother Other Social History Tobacco Use Types Packs/Day Years Used Date Smoking Tobacco: Never Smokeless Tobacco: Never Personal Safety Answer Date Recorded Getting School Help Needed Not on file 04/20 Comments No Sex and Gender Information Value Date Recorded Sex Assigned at Not on file Legal Sex Female 5:23 AM PROGRAM STRATEGIST Gender Identity Not on file Sexual Orientation Not on file Obstetrics History Para Term AB IAB SAB Ectopic Multiple Livin g Live Births 3 3 3 Date Outcome GA Total Labor Labor/2nd/3rd Weight Sex Type Anes PTL Griselda A1 A5 Name Clin Term Term Term Last Filed Vital Signs Vital Sign Reading Time Taken Comments Blood Pressure 156/78 04/14/2022 2:18 PM PROGRAM STRATEGIST Pulse 70 04/14/2022 2:18 PM PROGRAM STRATEGIST Temperature 36.5 C (97.7 F) 04/14/2022 2:18 PM PROGRAM STRATEGIST Respiratory Rate 18 04/14/2022 2:18 PM PROGRAM STRATEGIST Oxygen Saturation 97% 04/14/2022 2:18 PM PROGRAM STRATEGIST Inhaled Oxygen Concentration - - Weight 73.9 kg (163 lb) 04/14/2022 2:18 PM PROGRAM STRATEGIST Height 160 cm (5' 3 ) 04/14/2022 2:18 PM PROGRAM STRATEGIST Body Mass Index 28.87 04/14/2022 2:18 PM PROGRAM STRATEGIST Plan of Treatment Health Maintenance Due Date Last Done Comments Cervical Cancer Screening 1960 Colon Cancer Screening-Colonoscopy 1960 Depression Screening 1960 Hepatitis C Screening 1960 Hepatitis B Screening 1978 Regular Well Visit/Exam 18-64 1978 Zoster Vaccine (1 of 2) 2010 Covid-19 Vaccine (3 - season) 2023 04/16/2020, 03/18/2020 Influenza Vaccine (#1) 2023 , 12/05/2018, 12/05/2018, Additional history exists Breast Cancer Screening-Mammogram 11/18/2023 11/17/2022, 09/02/2021, 08/25/2020, Additional history exists DTaP/Tdap/Td Vaccine (2 - Td or Tdap) 09/15/2026 09/15/2016 Pneumococcal vaccine <65 Aged Out No longer eligible based on patient's age to complete this topic Procedures Procedure Name Priority Date/Time Associated Diagnosis Comments SCREENING MAMMOGRAM BILATERAL W JOEL Schedule Routine, Read Routine (OP Routine) 11/17/2022 9:50 AM CDT Screening mammogram, encounter for from Last 3 Months or Most Recently Relevant to Health Maintenance Results * Screening Mammogram Bilateral W Joel (11/17/2022 9:50 AM CDT) Anatomical Region Laterality Modality Breast Bilateral Mammography 11/17/2022 11:2 2 AM CDT Impressions 11/17/2022 11:22 AM CDT No evidence of malignancy in either breast. FINAL ASSESSMENT: BI-RADS Category 1: Negative. RECOMMENDATION: Recommend return for annual screening mammogram in 12 months. Electronically signed by: Monika Cruz M.D. Narrative 11/17/2022 11:22 AM CDT EXAMINATION: BILATERAL SCREENING MAMMOGRAM COMPARISON: Multiple prior studies, most recently 09/02/2021 and dating back to 12/26/2012. TECHNIQUE: Full-field 2D and digital breast tomosynthesis (DBT) images were obtained. CAD was utilized. BREAST PARENCHYMAL COMPOSITION: There are scattered areas of fibroglandular density. FINDINGS: There is no suspicious mass, calcification, or distortion in either breast. There has been no significant interval change from the prior study. Stable asymmetric densities seen in the right breast. us Self Screening Mammogram IMG MAMMO PROCEDURES Fi nal Result from Last 3 Months or Most Recently Relevant to Health Maintenance Insurance [employer] [facility] [employer] PLUS [facility] [id number] Member Subscriber Plan / Payer (Ef fective 2022-Present) Name:vIory Mendoza Member ID:[id number] Relation to Subscriber:Self Name:Ivory Mendoza Subscriber ID:[id number] Payer ID:[id number] Type:[employer] HMO/PPO Address: [facility] [id number] [id number] Care Teams Blind Hanger Relationship Specialty Start Date End Date Emerson Galvin MD PCP - General Family Practice 05/25/23
--- OUTSIDE RECORDS SUMMARY | 2024-03-15 01:13 | XMS_ITS | Clinical Summary ---
Author Organization [facility] Address [address] [place] [address] Phone Care Team Providers Care Sewing Machine Maintenance Mechanic Name Role Phone Emerson Galvin MD Primary Care Provider [phone] Karan Damian MD Unavailable Allergies Active Allergy Reactions Criticality Noted Date Comments Other-Environmental Allergen (Not Found In Search) Other (see Comments) 08/24/2023 ADHESIVE TAPE - USE PAPER TAPE Medications amLODIPine (NORVASC) 5 MG Tablet Take 5 mg by mouth nightly. 4 Active bacitracin-neom ycin-polymyxin b-hydrocortison e (CORTISPORIN) 1 % Ointment APPLY A SMALL RIBBON OF OINTMENT INTO EACH EYE THREE TIMES DAILY NEEDED FOR EYE ITCHING 4 Active cetirizine (ZyrTEC) 10 MG Tablet Take 10 mg by mouth daily. 4 Active pravastatin (PRAVACHOL) 40 MG Tablet Take 40 mg by mouth daily. 4 Active levothyroxine (SYNTHROID) 88 MCG Tablet Take 88 mcg by mouth every morning (before breakfast). 4 Active Dupixent 300 MG/2ML Solution Pen-injector every 14 days. 4 Active traMADol (ULTRAM) 50 MG TabletIndicatio ns:Calculus of kidney Take 1 Tablet by mouth every 6 hours as needed for Moderate or more severe pain. 15 Tablet 4 Active Additional Information Patient not taking.Reported on 09/20/2023 tobramycin (TOBREX) 0.3 % Solution 9 Active Active Problems No known active problems Family History Medical History Relation Name Comments Congestive Heart Failure Father Emphysema Father Cancer Mother BLADDER Diabetes Mother Hypertension Mother Stroke Mother Relation Name Status Comments Father Mother Social History Tobacco Use Types Packs/Day Years Used Date Smoking Tobacco: Never Smokeless Tobacco: Never Tobacco Cessation:Counseling Given: No Alcohol Use Standard Drinks/Week Comments Not Currently 0 (1 standard drink = 0.6 oz pur e alcohol) Comments No Sex and Gender Information Value Date Recorded Sex Assigned at Not on file Legal Sex Female 2:49 PM CDT Gender Identity Not on file Sexual Orientation Not on file Last Filed Vital Signs Vital Sign Reading Time Taken Comments Blood Pressure 123/78 11/22/2023 10:36 AM CDT Pulse 82 11/22/2023 10:36 AM CDT Temperature 36 C (96.8 F) 08/30/2023 5:32 PM CDT Respiratory Rate 19 11/22/2023 10:36 AM CDT Oxygen Saturation 97% 11/22/2023 10:36 AM CDT Inhaled Oxygen Concentration - - Weight 73.5 kg (162 lb) 11/22/2023 10:36 AM CDT Height 167.6 cm (5' 6 ) 11/22/2023 10:36 AM CDT Body Mass Index 26.15 11/22/2023 10:36 AM CDT Plan of Treatment Upcoming Encounters Date Type Department Care Team (Late st Contact Info) Description 08/21/2024 10:00 AM CDT Office Visit [facility] [address] [place] [address] Karan Damian MD [address] [phone] Health Maintenance Due Date Last Done Comments Hepatitis C Virus (HCV) Screening 1960 Pap Smear 1981 Cervical Cancer Screening (CCS) 1990 HPV/Cotest 1990 Cologuard 2010 Immunochemical Fecal Occult Blood 2010 Pneumococcal Immunization (50+ years) (1 of 1 - PCV) 2010 Zoster Immunization (1 of 2) 2010 Colonoscopy 02/05/2022 02/06/2012 Colorectal Cancer Screening 02/05/2022 Influenza Immunization (#1) 10/08/202311/06, 11/25/2021, 11/23/2020, Additional history exists SARS-COV-2 Immunization ( season) 2023 02/10/2023, 10/19/2021, 12/09/2020, Additional history exists Mammogram 11/17/2024 11/17/2022, 08/07, 08/25/2020, Additional history exists Respiratory Syncytial Virus (RSV) Immunization (Adult) (1 - 1-dose 75+ series) 12/23/2035 02/06/2012 TdaP Immunization Completed 09/15/2016 Hepatitis B Immunization Aged Out No longer eligible based on patient's age to complete this topic Meningococcal Immunization (ACWY) Aged Out No longer eligible based on patient's age to complete this topic Pneumococcal Immunization Combined Aged Out No longer eligible based on patient's age to complete this topic Rotavirus Immunization Aged Out No lo nger eligible based on patient's age to complete this topic Insurance OAP Care Teams Sewing Machine Maintenance Mechanic Relationship Specialty Start Date End Date Emerson Galvin MD PCP - General Family Medicine 08/23/23 Karan Damian MD [address] [phone] Consulting Physician Urology 08/23/23
--- OUTSIDE RECORDS SUMMARY | 2024-03-15 01:13 | XMS_ITS | Clinical Summary ---
Author Organization [facility] [employer] Address [address] [place] [address] Care Team Providers Care Metal Turner Name Role Phone Emanuel Hanson MD Primary Care Provider Source Comments [facility],non-owned Affiliates and Associated Physician Practices is amultiple site organization consisting of ambulatory clinics and hospital sitesin [place], [place], [place] and [place]. This disclosure is being madepursuant to the Care Everywhere program and may not contain all information available regarding this patient. Last updated 17.[facility] [employer] Social History Tobacco Use Types Packs/Day Years Used Date Smoking Tobacco: Never Assessed Sex and Gender Information Value Date Recorded Sex Assigned at Not on file Gender Identity Not on file Sexual Orientation Not on file Plan of Treatment Health Maintenance Due Date Last Done Comments COLOGUARD (AGES 45-75) - COL ON CA SCREENING 1960 COLON MONITORING 1960 COLONOSCOPY - COLON CA SCREENING 1960 CT COLONOGRAPHY - COLON CA SCREENING 1960 Colorectal Cancer Screening 1960 FIT - COLON CA SCREENING 1960 FLEX SIG - COLON CA SCREENING 1960 LIPID TESTING 1960 MAMMOGRAM 1960 PAP SMEAR 1960 HIV SCREENING 12/23/1975 HEPATITIS C SCREENING 12/18/1978 DTAP/TDAP/TD VACCINES (1 - Tdap) 12/23/1979 PNEUMOCOCCAL VACCINE 50+ (1 of 1 - PCV) 2010 ZOSTER VACCINE (1 of 2) 2010 COVID-19 VACCINE (1 - 2023-2 5 season) 2023 INFLUENZA VACCINE (#1) 2023 DEPRESSION SCREENING 02/07/2024 Respiratory Syncytial Virus (RSV) Vaccine Pt: or over 60 yrs (1 - 1-dose 75+ series) 12/23/2035 HEPATITIS B VACCINE Aged Out No longe r eligible based on patient's age to complete this topic HIB VACCINE Aged Out No longer eligi ble based on patient's age to complete this topic HPV VACCINE Aged Out No longer eligi ble based on patient's age to complete this topic MENINGOCOCCAL (Group B) VACCINE Aged Out No longer eligible based on patient's age to complete this topic MENINGOCOCCAL VACCINE Aged Out No margarito nancy eligible based on patient's age to complete this topic PNEUMOCOCCAL VACCINE Aged Out No long er eligible based on patient's age to complete this topic Care Teams Metal Turner Relationship Specialty Start Date End Date Emanuel Hanson MD [address] [place] [address] PCP - General 05/06/18
--- OUTSIDE RECORDS SUMMARY | 2024-03-15 01:13 | XMS_ITS | Encounter Summary ---
Author Organization [facility] Address [address] [place] [address] Care Team Providers Care Diamond Mounter Name Role Phone Emanuel Hanson MD Primary Care Provider Encounter Details Date Type Department Care Team (Late st Contact Info) Description 06/12/2023 Lab Requisition [facility] - DermPath Lab [address] [place] [address] Lalito Watts MD [address] [place] [address] Social History Tobacco Use Types [...] Priority Date/Time Associated Diagnosis Comments DERMATOPATHOLOGY Routine 06/08/2023 3:33 AM CDT documented in this encounter Results * DERMATOPATHOLOGY (06/08/2023 3:33 AM CDT) Case Report Dermatopathology Report Case: [id number] Authorizing Provider: Lalito Watts MD Collected: 06/08/2023 03:33 AM Ordering Location: [facility] - Received: 06/12/2023 07:57 AM DermPath Lab Pathologist: Aixa Hernandez MD Specimen: Skin, right post lower leg 12:50 PM CDT DERMATOPATHOLOGY LABORATORY Amended Report Correction of specimen site from left to right post lower leg 12:50 PM CDT DERMATOPATHOLOGY LABORATORY Final Diagnosis Specimen A. SKIN, right post lower leg: SEPTAL PANNICULITIS, SUPERFICIAL PORTIONS OF (M79.3) (see microscopic description and comment) 12:50 PM [facility] DERMATOPATHOLOGY LABORATORY Amendment electronically signed by Aixa Hernandez MD on 06/26/2023 at 12:49 PM Clinical History Sub Q nodule vs E. Nodosum. 12:50 PM [facility] DERMATOPATHOLOGY LABORATORY Gross Description Specimen A: Received is one formalin filled container labeled with the patient's name and designated right post lower leg. The specimen consists of a punch biopsy measuring 4x3x5 mm. Jar 0. 12:50 PM [facility] DERMATOPATHOLOGY LABORATORY Microscopic Description Specimen A. SKIN, right post lower leg: Epidermis, dermis, and superficial portions of subcutaneous tissue are present for evaluation. Sections show superficial portions of a septal panniculitis. The fibrous septa of the subcutaneous fat are focally thickened and contain a mixed inflammatory cell infiltrate containing histiocytes and multinucleated giant cells. Foci of fat necrosis are noted. Grocott's methenamine silver (GMS) stain is negative for fungal elements in the sections examined. LISBETH stain is negative for acid-fast mycobacteria in the sections examined. Additional deeper sections were obtained and reviewed. COMMENT: The histologic differential diagnosis includes erythema nodosum, changes associated with trauma, changes associated with a ruptured follicle or cyst, and less likely an infectious process given the negative GMS and LISBETH stains. Clinical correlation with culture is recommended if clinically indicated. 12:50 PM [facility] DERMATOPATHOLOGY LABORATORY Disclaimer An external and internal positive and negative controls are appropriate for the histochemical, immunohistochemical and immunofluorescence stain(s) in this case (if any), except where stated explicitly. The performance characteristics of the stain(s) cited in this report were developed and its performance characteristic determined by the Dermatopathology Laboratory at [facility], directed by Dr. Pieter Montalvo. These tests need not be, and therefore are not, approved by the [place] Food and Drug Administration. The tests are used for clinical purposes. Billing Codes Specimen Charges Stain Charges 17883 1 78835 80144 1 1 05/20/202 4 12:50 PM CDT DERMATOPATHOLOGY LABORATORY Embedded Images 4 12:50 PM CDT DERMATOPATHOLOGY LABORATORY Pathology/Cytolo gy TISSUE SPECIMEN FROM SKIN / Unknown 06/08/2023 3:33 AM CDT 06/12/2023 7:57 AM CDT Lalito Watts MD LAB - PATHOLOGY/CYTO LOGY ORDERABLES DERMATOPATHOLOGY LABORATORY [facility] - Department of Dermatology [facility] Specialized Medicine [address] [place] [address], [address] [phone] documented in this encounter Visit Diagnoses Not on filedocumented in this encounter Care Teams Diamond Mounter Relationship Specialty Start Date End Date Emanuel Hanson MD [address] [place] [address] PCP - General 05/06/18 documented as of this encounter
--- OUTSIDE RECORDS SUMMARY | 2024-03-15 01:13 | XMS_ITS | Referral Summary ---
Author Organization [facility] Address [address] [place] [address] Care Team Providers Care Performance Instructor Name Role Phone Emerson Galvin MD Primary Care Provider [phone] Allergies Active Allergy Reactions Criticality Noted Date [...] t Vaccination (12+ YRS) 04/16/2020,03/18/2020 Tdap 09/15/2016 Social History Tobacco Use Types Packs/Day Years Used Date Smoking Tobacco: Never Smokeless Tobacco: Never Personal Safety Answer Date Recorded Getting School Help Needed Not on file 04/20 Comments No Sex and Gender Information Value Date Recorded Sex Assigned at Not on file Legal Sex Female 5:23 AM TOWER HELPER Gender Identity Not on file Sexual Orientation Not on file Last Filed Vital Signs Vital Sign Reading Time Taken Comments Blood Pressure 156/78 04/14/2022 2:18 PM TOWER HELPER Pulse 70 04/14/2022 2:18 PM TOWER HELPER Temperature 36.5 C (97.7 F) 04/14/2022 2:18 PM TOWER HELPER Respiratory Rate 18 04/14/2022 2:18 PM TOWER HELPER Oxygen Saturation 97% 04/14/2022 2:18 PM TOWER HELPER Inhaled Oxygen Concentration - - Weight 73.9 kg (163 lb) 04/14/2022 2:18 PM TOWER HELPER Height 160 cm (5' 3 ) 04/14/2022 2:18 PM TOWER HELPER Body Mass Index 28.87 04/14/2022 2:18 PM TOWER HELPER Plan of Treatment Not on file Procedures Procedure Name Priority Date/Time Associated Diagnosis [...] Most Recently Relevant to Health Maintenance Insurance [employer] [facility] CHOICE PLUS [facility] HMO/PPO Address: [address] [address] [place] [address] [facility] [address] Care Teams Performance Instructor Relationship Specialty Start Date End Date Emerson Galvin MD PCP - General Family Practice 05/25/23
--- OUTSIDE RECORDS SUMMARY | 2024-03-15 01:13 | XMS_ITS | Referral Summary ---
Author Organization [facility] Address [address] [place] [address] Care Team Providers Care Insulation Board Coater Operator Name Role Phone Emanuel Hanson MD Primary Care Provider [phone] Source Comments [facility] Affiliates and Associated Physician Practices is amultiple site organization consisting of ambulatory clinics and hospital sitesin [place], [place], [place] and [place]. This disclosure is being madepursuant to the Care Everywhere program and may not contain all information available regarding this patient. Last updated 17.[facility] [employer] Social History Tobacco Use Types Packs/Day Years Used Date Smoking Tobacco: Never Assessed Sex and Gender Information Value Date Recorded Sex Assigned at Not on file Gender Identity Not on file Sexual Orientation Not on file Plan of Treatment Not on file Care Teams Insulation Board Coater Operator Relationship Specialty Start Date End Date Emanuel Hanson MD [address] [place] [address] PCP - General 05/06/18
--- OUTSIDE RECORDS SUMMARY | 2024-03-15 01:13 | XMS_ITS | Encounter Summary ---
Author Organization [facility] Address [address] [place] [address] Phone Care Team Providers Care Lemon Picker Name Role Phone Justin Novoa DO Primary Care Provider [phone] Emerson Galvin MD Primary Care Provider [phone] Reason for Visit * Reason Onset Date Comments SCHEDULE UPDATE 12/18/2020 Encounter Details Date Type Department Care Team (Late st Contact Info) Description 12/18/2020 Telephone [facility] Oncology [address] [address] Damaris Ortez, [facility] SCHEDULE UPDATE Social History Tobacco Use Types Packs/Day Years Used Date Smoking Tobacco: Never Smokeless Tobacco: Never Comments No Sex and Gender Information Value Date Recorded Sex Assigned at Not on file Legal Sex Female 5:23 AM PICU NURSE Gender Identity Not on file Sexual Orientation Not on file documented as of this encounter Plan of Treatment Not on file documented as of this encounter Visit Diagnoses Not on filedocumented in this encounter Care Teams Lemon Picker Relationship Specialty Start Date End Date Justin Novoa DO PCP - General Internal Medicine 07/26/18 05/24/23 Emerson Galvin MD PCP - General Family Practice 05/25/23 documented as of this encounter
--- OUTSIDE RECORDS SUMMARY | 2024-03-15 01:13 | XMS_ITS | Patient Health Summary ---
Author Organization [facility] Address [address] [place] [address] Care Team Providers Care Running Specialist Name Role Phone Emanuel Hanson MD Primary Care Provider [phone] [facility],non-owned Affiliates and Associated Physician Practices is amultiple site organization consisting of ambulatory clinics and hospital sitesin [place], [place], [place] and [place]. This disclosure is being madepursuant to the Care Everywhere program and may not contain all information available regarding this patient. Last updated 17.[facility] Social History Tobacco Use Types Packs/Day Years Used Date Smoking Tobacco: Never Assessed Sex and Gender Information Value Date Recorded Sex Assigned at Not on file Gender Identity Not on file Sexual Orientation Not on file Procedures * DERMATOPATHOLOGY(Performed 06/08/2023) * DERMATOPATHOLOGY(Performed 11/09/2022) Results * DERMATOPATHOLOGY (06/08/2023 3:33 AM CDT) Only the most recent of2 resultswithin the time period is included. Case Report Dermatopathology Report Case: [id number] Authorizing Provider: Lalito Watts MD Collected: 06/08/2023 03:33 AM Ordering Location: [facility] - Received: 06/12/2023 07:57 AM DermPath Lab Pathologist: Aixa Hernandez MD Specimen: Skin, right post lower leg 12:50 PM CDT DERMATOPATHOLOGY LABORATORY Amended Report Correction of specimen site from left to right post lower leg 12:50 PM CDT DERMATOPATHOLOGY LABORATORY Final Diagnosis Specimen A. SKIN, right post lower leg: SEPTAL PANNICULITIS, SUPERFICIAL PORTIONS OF (M79.3) (see microscopic description and comment) 12:[address] [facility] DERMATOPATHOLOGY LABORATORY Amendment electronically signed by Aixa Hernandez MD on 06/26/2023 at 12:49 PM Clinical History Sub Q nodule vs E. Nodosum. 12:[address] [facility] DERMATOPATHOLOGY LABORATORY Gross Description Specimen A: Received is one formalin filled container labeled with the patient's name and designated right post lower leg. The specimen consists of a punch biopsy measuring 4x3x5 mm. Jar 0. 12:[address] [facility] DERMATOPATHOLOGY LABORATORY Microscopic Description Specimen A. SKIN, [...] is recommended if clinically indicated. 12:[address] [facility] DERMATOPATHOLOGY LABORATORY Disclaimer An external and internal positive and negative controls are appropriate for the histochemical, immunohistochemical and immunofluorescence stain(s) in this case (if any), except where stated explicitly. The performance characteristics of the stain(s) cited in this report were developed and its performance characteristic determined by the Dermatopathology Laboratory at [facility], directed by Dr. Pieter Montalvo. These tests need not be, and therefore are not, approved by the [place] Food and Drug Administration. The tests are used for clinical purposes. Billing Codes Specimen Charges Stain Charges 48102 1 57095 [id number] 1 1 12:[address] [facility] DERMATOPATHOLOGY LABORATORY Embedded Images 12:[address] [facility] DERMATOPATHOLOGY LABORATORY Pathology/Cytolo gy TISSUE SPECIMEN FROM SKIN / Unknown 06/08/2023 3:33 AM CDT 06/12/2023 7:57 AM CDT Lalito Watts MD LAB - PATHOLOGY/CYTO LOGY ORDERABLES DERMATOPATHOLOGY LABORATORY [facility] - Department of Dermatology [facility] Specialized Medicine [address] [place] [address], [address] [phone] Care Teams Running Specialist Relationship Specialty Start Date End Date Emanuel Hanson MD [address] [place] [address] PCP - General 05/06/18
--- OUTSIDE RECORDS SUMMARY | 2024-03-15 01:14 | XMS_ITS | Data Portability ---
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 Patient will come back in a year unless there are new symptoms. [email or web address] Not available 11/09/2019 11:01:48 11/25/2020 11/25/2020 Annual gynecological exam performed. Patient will come back in a year unless there are new symptoms. Not available 11/24/2020 17:55:17 07/15/2022 07/15/2022 Annual gynecological exam performed. Patient will come back in a year unless there are new symptoms. [email or web address] Not available 07/15/2022 11:37:07 Plan of Treatment Reminders Order Date Submit Date Provider Last Modified By Organization Details Last Modified Time Details Appointments None recorded. Lab None recorded. Referral None recorded. Procedures None recorded. Surgeries None recorded. Imaging DEXA, axial skeleton + vertebral fracture assessment 2019 020 EVELINA [facility], [address], [place], [address], 05:00:36 DEXA, axial skeleton + vertebral fracture assessment 2020 021 birgit [facility], [address], [place], [address], 1 17:47:39 MAMMO, screening, bilateral [address] Scheduling, [address], [address], [place], [address], 4 13:13:23 US, breast, unilateral, w/ axilla [address] Scheduling, [address], [address], [place], [address], 4 13:13:23 Medication Orders None recorded. Patient TargetsNo targets recorded. Patient InstructionsNo instructions recorded. Reason for Referral None Reported. Results Created Date Observation Date Name Description Value Unit Range Abnormal Flag Note LastModifiedBy Organization Detail LastModifiedTime 11/09/19 20 11/13/2019 pap, LB Pap test thin prep Negati ve for Intrae pithel ial Lesion or Malign barbraa normal ACCES NAVDEEP #: [id number] Sourc e: Cervi jalil/E ndoce rvica l LMP: 06/25 Date Taken : 11/08 Speci men Type: ThinP rep Vial Date Repor zane: 2019 Clini jalil Data: Cytot ech: Mary perdue [place], [place]( CP) Date Repor zane: 2019 Speci men Adequ acy: Satis facto ry for evalu ation Gener al Categ oriza tion: NEGAT DOM FOR INTRA EPITH ELIAL LESIO N OR MALAISSATOU HOWARDCY Inter preta tion/ Resul t: Atrop hy Comme nts/R ecomm endat ions: Infla mmati on This speci men has been trice zed by the ThinP rep Imagi ng Syste m, an inter activ e compu ter syste m which yesi ts the lab in the [facility] bash[facility] of ThinP rep Pap Test slide s. Follo wing imagi ng, the slide was revie wed by a Cytot echno logis t and/o r Patho logis t. D N A A S S A Y S R E P O R T TEST NAME RESUL TS ----- ---- ----- -- HPV High Risk Cj wilson (TMA) ThinP rep Vial The human papil lomav irus (HPV) High Risk Scree n is an FDA-a pprov ed in-vi tro ampli fied nucle ic acid test for the quali tativ e detec tion of E6/E7 viral mRNA. Resul ts shoul d be corre lated with patie nt prese ntati on, histo ry, cervi jalil cytol ogy and other clini jalil and labor atory findi ngs. See https ://WiredBenefits/s ites/ defau lt/fi lesAW- 39893 _002_ 01.pd f for joseph ramirez infor matchivo n. Test perfo rmed by [employer] [facility] [employer], d/b/a Path[facility] rou, [address], [place] [address] , Melvi Araiza ra, DO, Labor atory [facility]. HPV High Risk *HPV NOT DETEC ZANE (TYPE S 16, 18, 31, 33, 35, 39, 45, 51, 52, 56, 58, 59, 66, 68) *HPV: The human papil lomav irus (HPV) High Risk Cj n is an FDA-a pprov ed in-vi tro ampli fied nucle ic acid test for the quali tativ e detec tion of E6/E7 viral mRNA. Resul kannan hudson d be corre lated with patie nt prese ntati on, histo ry, cervi jalil cytol ogy and other clini jalil and labor atory findi ngs. See https ://WiredBenefits/s ites/ defau lt/fi - 50660 _002_ .pd f for joseph er infor matio n. Test perfo rmed by [employer] [facility] [employer], d/b/a Path[facility] roup, [address], [place] [address] , Prani l K. Jose G ra, DO, Labor atory [facility]. End of Repor t Techn ical servi monie provi ded by [facility] log[facility] [employer], d/b/a Path [employer], [address] [facility] [address] [place] [address] Gabe Finn MD, [facility] tor. Case revie wed and diagn osis rende red at [facility] [employer] [facility] [employer], d/b/a [employer], [address] [place] [address] Gabe Finn MD, [facility]ly [facility] tor. CONFI DENTI AL Not Available [facility] ([facility]) [address] [facility] [address], [place], [address], 11/13/2019 10:09:21 11/09/19 20 11/12/2019 HPV DNA, high- risk HPV high risk NOT DETECT ED normal Not Available [facility] ([facility]) [address] [place] [address], [place], [address], 11/13/2019 10:09:22 11/26/19 21 11/25/2020 IMAGE GUIDE D PAP AND HPV REGAR DLESS image guided Pap, HPV regardless of Pap result SEE RESULT S BELOW CASE REPOR T: Cytol ogy Gynec ologi jalil Repor t Case: [id number] Autho susan covarrubias Provi raj: Ash Smart Colle cted: 11/25 1712 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 Atrop hy prese nt. Elect savanna cherry ashanti d by Opal Antoine , CT on 12/01 at 12:35 PM ----- ----- ----- ----- ----- ----- ----- ----- ----- ----- ----- ----- ----- ----- ----- ----- ----- ---- HPV RESUL TS: HPV mRNA E6/E7 : No HPV mRNA Detec zane NOTE: This high risk HPV mRNA assay detec ts fourt een high- risk HPV types (16, 18, 31, 33, 35, 39, 45, 51, 52, 56, 58, 59, 66, 68) witho ut diffe renti ation . COMME NT: Note: This speci men was revie wed by a Cytot echno logis t and/o r Patho logis t (as indic ated in this repor t) after evalu ation using the Thinp rep Imagi ng Syste m. CLINI JALIL INFOR MATIO N: Menst rual Statu s: LMP (if appli cable ): Clini jalil Histo ry/Pr eviou s Pap: Type of Neopl jani (if appli cable ): Signi fican t Clini jalil Findi ngs: Other Histo ry: Hormo harsh (if appli cable ): PAP EDUCA TRUDI L NOTE: The Pap Test is a scree bashir test with an inher ent false negat dom rate. Liqui d-bas e sampl ing may decre ase, but will not elimi jaime, false negat dom resul ts. A negat dom resul t does not precl ude the prese nce and/o r devel opmen t of disea se, since the prese nce of abnor mal cells in the sampl e depen ds on the locat ion of the lesio n and sampl ing techn ique. Philip nued regul ar scree bashir is the best metho d of cance r preve ntion . If repor zane cytol ogic findi ng do not corre late with physi jalil and/o r histo rical findi ngs, fur er inves tigat ion is recom lorena d, as clini eboni inman nted. 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 Atrop hic cell [place]. Elect savanna burrell d by Shirley Alonso, CT on 2022 at 1:18 PM ----- ----- ----- ----- ----- ----- ----- ----- ----- ----- ----- ----- ----- ----- ----- ----- ----- ---- HPV RESUL TS: HPV mRNA E6/E7 : No HPV mRNA Detec zane NOTE: This high risk HPV mRNA assay detec ts fourt een high- risk HPV types (16, 18, 31, 33, 35, 39, 45, 51, 52, 56, 58, 59, 66, 68) witho ut diffe renti ation . COMME NT: This speci men was revie wed by a Cytot echno logis t and/o r Patho logis t (as indic ated in this repor t) after evalu ation using the Thinp rep Imagi ng Syste m. CLINI JALIL INFOR MATIO N: Menst rual Statu s: LMP (if appli cable ): Clini jalil Histo ry/Pr eviou s Pap: Type of Neopl jani (if appli cable ): Signi fican t Clini jalil Findi ngs: Other Histo ry: Hormo harsh (if appli cable ): PAP EDUCA TRUDI L NOTE: The Pap Test is a scree bashir test with an inher ent false negat dom rate. Liqui d-bas ed sampl ing may decre ase, but will not elimi jaime, false negat dom resul ts. A negat dom resul t does not precl ude the prese nce and/o r devel opmen t of disea se, since the prese nce of abnor mal cells in the sampl e depen ds on the locat ion of the lesio n and sampl ing techn ique. Philip nued regul ar scree bashir is the best metho d of cance r preve ntion . If repor zane cytol ogic findi ng do not corre late with physi jalil and/o r histo rical findi ngs, furth er inves tigat ion is recom lorena d, as clini eboni inman nted. Not Available [facility] (Lab) [address], [place], [address], 07/20/2022 14:21:21 02/02/20 21 02/01/2021 DEXA No observ ation record ed. [email or web address] Not Available 2021 13:28:16 09/03/19 22 09/02/2021 MAMMO , scree bashir, bilat eral No observ ation record ed. [email or web address] [facility] (Imaging) [address], [place], [address], 08/15/2022 16:00:03 Result Notes None recorded. Problems Name Problem SNOMED Code Status Onset Date Resolution Date Notes Provider Name and Address Organization Details Recorded Time SNOMED CT Concept Completed 201611/24/2020 Encntr for general adult medical exam w/o abnormal findings; Practice ID: 0001 Diana javier [facility] 17:50:[address] Concept Completed 201611/24/2020 Encntr for director of optimization exam (general) (routine) w/o abn findings; Practice ID: 0001 Diana javier [facility] 17:50:24 Screenin g for malignan t neoplasm of rectum Completed 201611/24/2020 Encounter for screening for malignant neoplasm of rectum;Pr actice ID: 0001 Diana javier [facility] 17:50:21 Abdomina l pain [id number] Completed 201911/24/2020 Unspecifi ed abdominal pain;Prac arturo ID: 0001 Diana javier [facility] 17:49:54 Right lower quadrant pain [id number] Completed 201411/24/2020 Abdominal pain, right lower quadrant; Practice ID: 0001 Diana javier [facility] 17:50:18 Adult health examinat ion Completed 201411/24/2020 Routine general medical examinati on at a health care facility; Practice ID: 0001 Diana javier [facility] 17:49:55 Speciali zed medical examinat ion Completed 201411/24/2020 Routine gynecolog ical examinati on;Practi ce ID: 0001 Diana javier [facility] 17:50:25 Screenin g for malignan t neoplasm of cervix Completed 201411/24/2020 Pap Smear;Pra ctice ID: 0001 Diana javier [facility] 17:50:19 Left lower quadrant pain [id number] Completed 201411/24/2020 Abdominal pain, left lower quadrant; Practice ID: 0001 Diana javier [facility] 17:50:05 Blood leukocyt e number above referenc e range [id number] Completed 201511/24/2020 Elevated white blood cell count, unspecifi ed;Practi ce ID: 0001 Diana javier [facility] 17:50:03 Pelvic and perineal pain 783993510 Completed 201511/24/2020 Pelvic and perineal pain;Prac arturo ID: 0001 Diana Hu [facility] 17:50:13 Postmeno pausal bleeding 97623033 Completed 201511/24/2020 Postmenop ausal bleeding; Practice ID: 0001 Diana Hu [facility] 17:50:14 Pregnanc y test negative [id number] Completed 201511/24/2020 Encounter for test, result negative; Practice ID: 0001 Diana javier [facility] 17:50:16 Dysfunct ional uterine bleeding Completed 201011/24/2020 DUB;Pract ice ID: 0001 Diana Hu [facility] 17:49:58 Female genital organ symptoms [id number] Completed 201011/24/2020 Unspecifi ed symptom associate d with female genital organs;Pr actice ID: 0001 Diana Hu [facility] 17:50:00 Mammogra phy abnormal [id number] Completed 201011/24/2020 Unspecifi ed abnormal mammogram ;Practice ID: 0001 Diana javier [facility] 17:50:06 Pain of breast 52997314 Completed 201111/24/2020 Mastodyni a;Practic e ID: 0001 Diana Hu [facility] 17:50:11 Microsco pic hematuri a 418280865 Completed 201111/24/2020 HEMATURIA MICROSCOP IC;Practi ce ID: 0001 Diana Hu [facility] 17:50:08 Overweig ht [id number] Completed 201411/24/2020 Overweigh t;Practic e ID: 0001 Diana Hu [facility] 17:50:09 Pain Completed 201811/24/2020 Pain in joint;Rec orded Elsewhere : No Locati on: [facility] So urce: EHR Chron ic: N Practic e ID: 0001 Bill able Time: 03:30:00 PM Diana Hu [facility] 17:50:02 Cyst of ovary [id number] Completed 201011/24/2020 OVARIAN CYST;Prac arturo ID: 0001 Diana Hu [facility] 17:49:57 Problem Notes None recorded. Procedures Surgical History Date Name Laterality Status Provider Name and Address Organization Details Recorded Time 07/16/19 23 Date of Last Pap Smear completed Ariella Rivas [facility] 05/25/2023 11:11:29 09/03/19 22 Date of Last Mammogram completed Tiffanie Talavera [facility] 07/15/2022 11:39:11 08/26/19 21 completed Diana Hu [facility] 11/25/2020 17:18:29 02/06/19 19 excision of lipoma completed Татьяна Aguilar [facility] 07/31/2019 16:11:26 07/08/19 16 Hysteroscopy completed [facility] 07/31/2019 16:02:07 02/06/19 13 colonoscopy completed [facility] 07/31/2019 16:00:38 02/06/19 10 thoracectomy completed [facility] 07/31/2019 16:02:40 02/06/19 10 lobectomy of lung completed [facility] 07/31/2019 16:03:08 02/06/18 91 section completed [facility] 07/31/2019 16:00:03 02/06/18 91 ligation of bilateral fallopian tubes completed [facility] 07/31/2019 16:00:21 02/06/18 87 laparoscopy completed [facility] 07/31/2019 16:01:05 Hysteroscopy completed Diana [facility] 11/25/2020 17:18:04 Imaging Results Imaging Date Name Status LastModified by Organiz ation Details LastModified Time 02/01/2021 DEXA completed [email or web address] Information no t available 04/21/2021 13:28:16 09/02/2021 MAMMO, screening, [facility] [place] [address] (Imaging) [facility] [place], [address], 08/15/2022 16:00:03 Procedure Notes None recorded. Medical Equipment None Reported. Allergies Allergen ID Allergen Name Allergen Category Reaction Reaction Severity Criticality Documentation Date Start Date Code Code System Note Provider Name and Address Organization Details Recorded Time 43920 adhesive environme nt,medica tion Not available Not available Not available 01/24/2020 70190 UNK Comme nt: [facility]at [facility]; Not Available [facility] 0 14:24:24 Medications Name Sig Start Date Stop Date Status Note LastModified by Organization Details LastModified Time amoxicill in 500 mg capsule take 1 capsule (500MG) by oral route 3 times every day for 10 days 01/10 completed Prescrib ed Elsewher e: No Locat ion: Inessa singh [facility] odify By: jayesh ramirez DateTime : 01/02/20 12 09:52:35 AM Not Available Not Available Not Available azelastin e 0.05 % eye drops INSTILL 1 DROP IN EACH EYE TWICE DAILY 07/15 completed Not Available Not Available Not Available prednison e 10 mg tablet TAKE 3 TABLETS BY MOUTH ONCE DAILY FOR 5 DAYS THEN 2 TABLETS ONCE DAILY FOR 5 DAYS AND THEN 1 TABLET ONCE DAILY FOR 5 DAYS 05/24 completed Not Available Not Available Not Available azithromy cherie 250 mg tablet TAKE 2 TABLETS BY MOUTH ON DAY 1, AND THEN TAKE 1 TABLET BY MOUTH ONCE A DAY ON DAY 2 THROUGH DAY 5 05/24 completed Not Available Not Available Not Available pravastat in 40 mg tablet TAKE 1 TABLET BY MOUTH ONCE DAILY active Not Available Not Available No t Available Lotrisone 1 %-0.05 % topical cream apply by topical route 2 times every day for 2 weeks to the affected and surround ing areas of skin in the morning and evening 01/09 completed Prescrib ed Elsewher e: No [facility] By: alissa leone Encou nter DateTime : 12/28/19 12 09:00:00 AM Not Available Not Available Not Available prednison e 20 mg tablet TAKE 1 TABLET BY MOUTH DAILY 07/15 completed Not Available Not Available Not Available prednison e 5 mg tablet 07/15 completed Not Available Not Available Not Available amlodipin e 5 mg tablet TAKE 1 TABLET BY MOUTH ONCE DAILY active Not Available Not Available No t Available amoxicill in 500 mg tablet take 1 tablet by oral route 3 times every day 08/10 completed Prescrib ed Elsewher e: No Locat ion: [facility] odify By: sam Singh ncounter DateTime : 07/27/19 16 03:15:18 PM Not Available Not Available Not Available Celebrex 200 mg capsule 200mg PO the night before and 400mg PO morning of procedur e 07/22 completed Prescrib ed Elsewher e: No Locat ion: Inessa singh [facility] odify By: regina emerson DateTime : 06/18/19 04:02:39 PM Not Available Not Available Not Available levothyro xine 88 mcg tablet TAKE 1 TABLET BY MOUTH ONCE DAILY active Not Available Not Available No t Available pravastat in 10 mg tablet take 1 tablet by oral route every day 11/24 completed Prescrib ed Elsewher e: Yes Loca tion: Inessa sing[facility] odify By: rosalva cedeno DateTime : 12/28/19 09:00:00 AM Not Available Not Available Not Available Synthroid 75 mcg tablet take 1 tablet by oral route every day 05/24 completed Not Available Not Available Not Available diclofena c sodium 75 mg tablet,de layed release take 1 tablet by oral route 2 times every day 11/08 completed Not Available Not Available Not Available clobetaso l 0.05 % topical ointment RUB IN WELL TO RED AREAS ON BODY TWICE DAILY UNTIL CLEAR 05/24 completed Not Available Not Available Not Available fluocinol one 0.01 % topical solution APPLY SOLUTION TOPICALL Y TO THE AFFECTED AREA TWICE DAILY 05/24 completed Not Available Not Available Not Available diazepam 10 mg tablet 10 mg PO 1 hour before the procedur e 07/22 completed Prescrib ed Elsewher e: No Locat ion: Inessa singh [facility] odify By: regina emerson DateTime : 06/18/19 04:02:39 PM Not Available Not Available Not Available [place] 5 mg-325 mg tablet 2 tablets PO 2 hours before the procedur e 07/22 completed Prescrib ed Elsewher e: No Locat ion: Kleber kevin [facility] odify By: regina emerson DateTime : 06/18/19 04:02:39 PM Not Available Not Available Not Available clobetaso l 0.05 % scalp solution RUB IN WELL TO INVOLVED AREAS OF SCALP DAILY UNTIL CLEAR 05/24 completed Not Available Not Available Not Available dicyclomi ne 10 mg capsule 11/08 completed Not Available Not Available Not Available neomycin 3.5 mg/g-poly myxin B 10,000 unit/g-de xameth 0.1 % eye oint APPLY 1 APPLICAT ION EVERY 6 HOURS INTO EACH EYE 05/24 completed Not Available Not Available Not Available neomycin- bacitraci n-poly-HC 3.5 mg-400-10 ,000 unit/g-1 % eye ointment APPLY A SMALL RIBBON OF OINTMENT INTO EACH EYE THREE TIMES DAILY NEEDED FOR EYE ITCHING active Not Available Not Available No t Available amlodipin e besylate (bulk) 100 % powder 11/24 completed Prescrib ed Elsewher e: Yes Loca tion: [facility] odify By: austin emerson DateTime : 04/08/19 03:00:00 PM Not Available Not Available Not Available Dupixent 300 mg/2 mL subcutane ous pen injector active Not Available Not Available Not Available Vitals Date Recorded Body height Body mass index (BMI) Body weight Provider Name and Address Organization Details Last Updated DateTime 11/25/2020 160.02 cm 29.2 kg/m2 28044.74 g Diana Hu [facility] 11/25/2020 17:17:42 Date Recorded Systolic blood pressure Diastolic blood pressure Provider Name and Address Organization Details Last Updated DateTime 11/25/2020 132 mm[Hg] 76 mm[Hg] Ninfa Hung [facility] [address], [place], [address], [facility] 11/25/2020 17:23:12 Date Recorded Body height Body mass index (BMI) Body weight Provider Name and Address Organization Details Last Updated DateTime 07/15/2022 160.02 cm 29.1 kg/m2 05660.15 g Tiffanie Talavera [facility] 07/15/2022 11:37:47 Date Recorded Systolic blood pressure Diastolic blood pressure Provider Name and Address Organization Details Last Updated DateTime 07/15/2022 132 mm[Hg] 80 mm[Hg] Ninfa Hung DEVONTE- [address], [place], [address], [facility] 07/15/2022 12:14:56 Date Recorded Body height Body mass index (BMI) Body weight Systolic blood pressure Diastolic blood pressure Provider Name and Address Organization Details Last Updated DateTime 05/25/2023 160.02 cm 29.6 kg/m2 10127.93 g 142 mm[Hg] 80 mm[Hg] Ariella Rivas [facility] 4 11:10:14 Date Recorded Body height Body mass index (BMI) Body weight Systolic blood pressure Diastolic blood pressure Provider Name and Address Organization Details Last Updated DateTime 11/09/2019 158.75 cm 29.3 kg/m2 80858.56 g 158 mm[Hg] 80 mm[Hg] Nataliya Villalobos [facility] 0 11:07:48 Social History Question Answer Notes LastModified by Organizat ion Details LastModified Time Tobacco Smoking Status Never Smoker Galilea javier, [facility] 07/15/2022 11:28:06 Do You Have An Advance Directive? No Information not available 11/25/2020 What Is Your Level Of Alcohol Consumption? Occasional [email or web address] Information not available 07/31/2019 Are You Blind Or Do You Have Difficulty Seeing? No Information not available 11/24/2020 What Is Your Level Of Caffeine Consumption? Occasional Information not available 11/24/2020 In The 14 Days Before Symptom Onset, Have You Had Close Contact With A Laboratory-confir med COVID-19 While That Case Was Ill? No Information not available 11/25/2020 In The 14 Days Before Symptom Onset, Have You Had Close Contact With A Person Who Is Under Investigation For COVID-19 While That Person Was Ill? No Information not available 11/25/2020 Have You Been To An Area Known To Be High Risk For COVID-19? No Information not available 11/25/2020 Are You Deaf Or Do You Have Serious Difficulty Hearing? No Information not available 11/24/2020 What Type Of Diet Are You Following? REGULAR Information not available 11/24/2020 Do You Or Have You Ever Used E-cigarettes Or Vape? Never Used Electronic Cigarettes Information not available 07/15/2022 What Is The Highest Grade Or Level Of School You Have Completed Or The Highest Degree You Have Received? 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 Yes Information not available 11/25/2020 What Was The Date Of Your Most Recent Tobacco Screening? 07/31/2019 [email or web address] Information not available 07/15/2022 Do You Use Your Seat Belt Or Car Seat Routinely? Yes Information not available 11/25/2020 Do You Have Smoke And Carbon Monoxide Detectors In Your Home? Yes Information not available 11/25/2020 Do You Or Have You Ever Used Smokeless Tobacco? Never Used Smokeless Tobacco [email or web address] Information not available 07/15/2022 How Much Tobacco Do You Smoke? No [email or web address] Information not available 07/31/2019 Do You Feel Stressed (tense, Restless, Nervous, Or Anxious, Or Unable To Sleep At Night)? [id number] Information not available 11/25/2020 Do You Use Any Illicit Or Recreational Drugs? No Information not available 11/24/2020 Do You Use Sunscreen Routinely? Yes Information not available 11/25/2020 Sex: Unknown Functional Status Question Answer Note LastModified by Organizat ion Details LastModified Time Are you able to walk? [email or web address] Information not available 11/24/2020 What is your exercise level? Occasional [email or web address] Information not available 07/31/2019 Mental Status None recorded. Family History Relationship Description Onset Age of this Age Resolved Age Notes LastModified by Organization Details LastModified Time Father Hypertensive disorder [email or web address] Not available 2022 11:38:05 Father Pulmonary [email or web address] Not available 2023 11:05:17 Father Heart disease CHF [email or web address] Not available 2022 11:38:05 Mother Diabetes mellitus [email or web address] Not available 2022 11:38:05 Mother Pulmonary embolism Not available 2023 11:05:17 Mother Disorder of thyroid gland [email or web address] Not available 2022 11:38:05 Mother History of malignant neoplasm of uterine body [email or web address] Not available 11:05:17 Mother Hypertensive disorder [email or web address] Not available 2022 11:38:05 Mother Malignant neoplasm of urinary bladder [email or web address] Not available 2023 11:05:17 Mother Acute stroke [email or web address] Not avai lable 05/25/2023 11:05:17 Medical History Condition Response Heart Problems Y Other Y Hematologic disorders Y High Cholesterol Y Heart Disease Y Cancer Y Thyroid Problems Y Hypertension Y Lung Disease Y GI Problems Y Gynecological History Statement/Question Response Date of Last Mammogram 09/02/2021 Date of LMP 02/06/2009 On BCP's at Conception? N N STIs/STDs N HPV Vaccine N 08/25/2020 15 Current Control Method Tubal Ligat ion Age at First Child 23 If Post Menopausal, Age at Menopause 48 Sexually Active? Y Menses Monthly N Date of DEXA bone scan 02/01/2021 Date of Last Pap Smear 07/15/2022 Sexual Problems? N LMP Unknown N Obstetrics History GPAL:G 3 P 3 0 0 3 Type Value Full Term 3 Living 3 Total 3 Past Encounters Encounter ID Performer Location Encounter Start Date Encounter Closed Date Diagnosis/Indication Diagnosis SNOMED-CT Code Diagnosis ICD10 Code [id number] [address],[place] [address] 07/31/2019 10:33:33 07/31/2019 11:21:21 Mastodynia of left breast [id number] N64.4 [id number] [address],[place] [address] 09/13/2019 15:46:17 09/17/2019 08:52:50 [id number] [facility] [address],[place] [address] 11/09/2019 11:00:45 11/09/2019 11:32:31 Gynecologic examination 86116942 Z01.419 Take Calcium with Vitamin D 12-1500mg daily. Do monthly self breast exams. It is advised to get annual flu shot in the fall and she could obtain at [facility] or [facility] take care clinic. If you haven't received the Tdap vaccine in the last 10 years you should obtain one as well. Have mammogram yearly, bone density every 2-3 years and colonoscop y every 5-10 years depending on findings and history. Engage in daily exercise of low impact aerobic exercise 45-60 minutes 4-5 times weekly. Avoid tobacco and illicit drugs as well as using moderation with alcohol intake less than 1-2 8 oz beverages daily. This lifestyle behavior pattern will lead to less health conditions and longer life span. If BMI greater than 25 weight watchers or dietary consult advised. Questions have been answered. Patient appears to understand instructio ns, but if you have any further questions call or respond to this email Doing well no issues this year. Normal pap hx x 20+yrs UTD Colonoscop y Mammo completed wnl Instructed to monitor BP & report to PCP if continues to be anything > 140/90's Postmenopa usal osteopenia [id number] E03.9 We discussed possibly completing baseline Dexa scan since she has risk factors for osteopenia /osteoporo sis: She is on a statin drug, Hypothyroi dism, & has been in Menopause for >10yrs. She will check with her insurance for coverage if decides to pursue. [id number] Ninfa Hung , [facility] [address] [address] 11/25/2020 17:00:19 11/26/2020 09:20:14 Gynecologic examination [id number] Z01.419 Take Calcium with Vitamin D 12-1500mg daily. Do monthly self breast exams. It is advised to get annual flu shot in the fall and she could obtain at [facility] or [facility] care clinic. If you haven't received the Tdap vaccine in the last 10 years you should obtain one as well. Have mammogram yearly, bone density every 2-3 years and colonoscop y every 5-10 years depending on findings and history. Engage in daily exercise of low impact aerobic exercise 45-60 minutes 4-5 times weekly. Avoid tobacco and illicit drugs as well as using moderation with alcohol intake less than 1-2 8 oz beverages daily. This lifestyle behavior pattern will lead to less health conditions and longer life span. If BMI greater than 25 weight watchers or dietary consult advised. Questions have been answered. Patient appears to understand instructio ns, but if you have any further questions call or respond to this email Doing well no issues this year. Normal pap hxOpts for pap/hpv sent x 20+yrs UTD Colonoscop y Mammo completed wnlDexa-or dered Postmenopa usal osteopenia [id number] E03.9 We discussed possibly completing baseline Dexa scan since she has risk factors for osteopenia /osteoporo sis: She is on a statin drug, Hypothyroi dism, & has been in Menopause for >10yrs. She will check with her insurance for coverage if decides to pursue. Family his tory of malignant neoplasm of uterus [id number] Z80.49 Z85.118 Z80.52 Discussed invitae cancer screening. Interested but would like to read up on it a little further.Le t us know & we can place orders and draw this test here.Under standing verbalized . [id number] Ninfa Hung , [facility] [address] [address] 07/15/2022 11:25:47 07/15/2022 12:25:33 Gynecologic examination [id number] Z01.419 Z11.51 Take Calcium with Vitamin D 12-1500mg daily. Do monthly self breast exams. It is advised to get annual flu shot in the fall and she could obtain at [facility] or [facility] care clinic. If you haven't received the Tdap vaccine in the last 10 years you should obtain one as well. Have mammogram yearly, bone density every 2-3 years and colonoscop y every 5-10 years depending on findings and history. Engage in daily exercise of low impact aerobic exercise 45-60 minutes 4-5 times weekly. Avoid tobacco and illicit drugs as well as using moderation with alcohol intake less than 1-2 8 oz beverages daily. This lifestyle behavior pattern will lead to less health conditions and longer life span. If BMI greater than 25 weight watchers or dietary consult advised. Questions have been answered. Patient appears to understand instructio ns, but if you have any further questions call or respond to this email Doing well no issues this year. Normal pap hxOpts for pap/hpv sent x 20+yrs UTD Colonoscop y Mammo completed wnlDexa-ma naged PCP [id number] Ninfa Hung [facility] [address] [address] 05/25/2023 11:02:00 05/25/2023 11:27:54 Screening mammography 49120410 Z12.31 Pain of left breast 1010 394492 N64.4 Today we agreed to update yearly imaging; and left breast US for continued complaints of breast pain random with constant dull ache.Tende r on exam generally overall.Re commend going to same place she has in the past so they have comparison imaging. Time spent in visit is a total of 21 mins with at least 50% of visit consisting of counseling and review of plan of care. Health Concerns Section Related Observation LastModified by Organization Detai ls LastModified Time None Recorded Concern Status LastModified by Organization Details LastModified Time None Recorded Advance Directives Directive N: Payers Encounter Date Sequence Insurance Name Policy Number Policy Elmore Covered Member ID Elmore Member ID Guarantor Name 09/13/2019 1 [facility] [id number] Ivory A MacIos [id number] Ivory A MacI[employer] 11/09/2019 1 [facility] [id number] Ivory A MacIos [id number] Ivory A MacIos 11/25/2020 1 [facility] [id number] Ivory A MacIos [id number] Ivory A MacIos 07/15/2022 1 [facility] [employer] [facility] Ivory A MacIos [id number] Ivory A MacIos 05/25/2023 1 [facility] [employer] [facility] Ivory A MacIos [id number] Ivory A MacIos Notes Date Note Type Note Provider Name and Address Organization Details Recorded Time 09/13/2019 text/html pt not seen, azul t made in error Adilia Vazquez CNM [address], [place], [address], [facility] 09/17/2019 08:52:49 11/09/2019 text/html Annual GYNReport ed bypatient.History:n o gynecologic complaints Menstrual cycle:Normal menses Urinary symptoms:No hematuria; No incontinence Vulva:No genital lesion Vagina:Normal vaginal discharge Breast:No breast pain; No breast lump; No nipple discharge Current Contraception:Satis fied with current contraception; Monogamous relationship; postmenopause Sexual complaints:No sexual complaints; No pain during intercourse; Normal libido Menopausal Symptoms:No menopausal symptoms; Normal vaginal lubrication Psychological symptoms:No depression; No anxiety; No PMDD Preventive measures:Encourage self breast examination; Encourage regular exercise; Encourage no tobacco use; Encourage regular mammograms starting age 40; Followed with Q3 year pap smear and high risk HPV typing; Mammogram performed within the past year; Up to date on colonoscopy screening [facility] [address], [place], [address], [facility] 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 Post-MenopausalRepo rted bypatient.Menopausa l Symptoms:no menopausal symptoms; normal vaginal lubrication Vaginal Bleeding:history of menopause having occurred; no history of post menopausal bleeding Urinary Symptoms:no hematuria; no incontinence; no nocturia; no urinary frequency Vulva:no genital lesion; no vulvar atrophy Vagina:normal vaginal discharge; no vaginal atrophy Breast:no breast lump; no nipple discharge; no breast pain Sexual Complaints:no sexual complaints Psychological Symptoms:no depression; no anxiety Preventive Measures:encourage regular mammograms starting age 40; encourage self breast examination; encourage regular exercise; encourage no tobacco use; mammogram performed within the past year; history of recent colonoscopy; needs to schedule bone density [facility] [address], [place], [address], [facility] 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 Post-MenopausalRepo rted bypatient.Menopausa l Symptoms:no menopausal symptoms; normal vaginal lubrication Vaginal Bleeding:history of menopause having occurred; no history of post menopausal bleeding Urinary Symptoms:no hematuria; no incontinence; no nocturia; no urinary frequency Vulva:no genital lesion; no vulvar atrophy Vagina:normal vaginal discharge; no vaginal atrophy Breast:no breast lump; no nipple discharge; no breast pain Sexual Complaints:no sexual complaints Psychological Symptoms:no depression; no anxiety Preventive Measures:encourage regular mammograms starting age 40; encourage self breast examination; encourage regular exercise; encourage no tobacco use; needs to schedule mammogram (Goes to [facility]); history of recent colonoscopy GENEVIEVE Coleman [address], [place], [address], [facility] 07/15/2022 12:16:44 05/25/2023 text/html Breast PainRepor zane bypatient.Location: left Onset/Timing:>1 month Duration:constant (dull ache) Quality:dull; aching; stabbing Severity:mild Context:post menopause; performs breast self examination Associated Symptoms:no fever; no chills; no skin redness; no nipple discharge; no sore nipples; breasts not full, sore, unable to express milk; no breast swelling; no arm pain; no arm swelling; no chest pain; no malaise; no breast lump GENEVIEVE Coleman [address], [place], [address], [facility] 05/25/2023 11:25:58 OBGyn Episode Ob Episode Information Episode Created Date Number of Fetuses Patient Bloodtype Patient rh Status Prepregnancy Weight lbs Domestic Partner Domestic Partner Phone Father Name Police Specialist Status 07/31/19 20 1 CLOSED Fetus Data First Name Last Name Admitted to NICU Weight (g) Sex Living Outcome Pediatric Complications Fetus ID Race Codes Race Delivery Type F Full Term 2511 Primary Lavelle Calculation Initial Lavelle Date Initial Exam Date Initial Exam Provider Initial Ultrasound Date Last Menstrual Period Date Ultra Sound Weeks Gestation 0 Eighteen To Twenty Week Laevlle Update Ultra Sound Date Fundal Height At Umbil Quickening Date Ultra Sound Latest Weeks Gestation Final Lavelle Confirmed By Final Lavelle Confirmed Date Final Lavelle Date Ultra Sound Latest Days Gestation 0 0 Menstrual History Last Menstrual Date Menses Monthly On Bcp Conception Prior Menses Frequency Hcg Plus Date Menarche Onset Age Delivery Information Delivery Date Delivery Type Labor Anesthesia Weeks Gestation Incision Type Labor Labor Length Hrs Delivered By Post Complications Tubal Sterilization Discharge Date Comments 1 PLACENTA PREVIA Discharge Information Feeding Method Contraceptive Method Maternal HG B and HCT Levels Ob Episode Information Episode Created Date Number of Fetuses Patient Bloodtype Patient rh Status Prepregnancy Weight lbs Domestic Partner Domestic Partner Phone Father Name Police Specialist Status 07/31/19 20 1 CLOSED Fetus Data First Name Last Name Admitted to NICU Weight (g) Sex Living Outcome Pediatric Complications Fetus ID Race Codes Race Delivery Type M Full Term 2512 Vaginal Delivery Lavelle Calculation Initial Lavelle Date Initial Exam Date Initial Exam Provider Initial Ultrasound Date Last Menstrual Period Date Ultra Sound Weeks Gestation 0 Eighteen To Twenty Week Lavelle Update Ultra Sound Date Fundal Height At Umbil Quickening Date Ultra Sound Latest Weeks Gestation Final Lavelle Confirmed By Final Lavelle Confirmed Date Final Lavelle Date Ultra Sound Latest Days Gestation 0 0 Menstrual History Last Menstrual Date Menses Monthly On Bcp Conception Prior Menses Frequency Hcg Plus Date Menarche Onset Age Delivery Information Delivery Date Delivery Type Labor Anesthesia Weeks Gestation Incision Type Labor Labor Length Hrs Delivered By Post Complications Tubal Sterilization Discharge Date Comments 8 Discharge Information Feeding Method Contraceptive Method Maternal HG B and HCT Levels Ob Episode Information Episode Created Date Number of Fetuses Patient Bloodtype Patient rh Status Prepregnancy Weight lbs Domestic Partner Domestic Partner Phone Father Name Police Specialist Status 07/31/19 20 1 CLOSED Fetus Data First Name Last Name Admitted to NICU Weight (g) Sex Living Outcome Pediatric Complications Fetus ID Race Codes Race Delivery Type F Full Term 2513 Vaginal Delivery Lavelle Calculation Initial Lavelle Date Initial Exam Date Initial Exam Provider Initial Ultrasound Date Last Menstrual Period Date Ultra Sound Weeks Gestation 0 Eighteen To Twenty Week Lavelle Update Ultra Sound Date Fundal Height At Umbil Quickening Date Ultra Sound Latest Weeks Gestation Final Lavelle Confirmed By Final Lavelle Confirmed Date Final Lavelle Date Ultra Sound Latest Days Gestation 0 0 Menstrual History Last Menstrual Date Menses Monthly On Bcp Conception Prior Menses Frequency Hcg Plus Date Menarche Onset Age Delivery Information Delivery Date Delivery Type Labor Anesthesia Weeks Gestation Incision Type Labor Labor Length Hrs Delivered By Post Complications Tubal Sterilization Discharge Date Comments 5 Discharge Information Feeding Method Contraceptive Method Maternal HG B and HCT Levels
[2024-03-15 07:49] VITALS: BP 164/72; PULSE 81; RESP 16; TEMP 36.2; O2SAT 100
[2024-03-15] MEDS: LACTATED RINGERS 1,000 ML 150 ML IV CONT (07:56)
--- NOTE | 2024-03-15 08:41 | WPDANESEPPF ---
Anes - Initial Pre Proc Eval Procedure: Operation Date: 03/15/24 09:00 Proposed Procedures p Colonoscopy - Magdy Altamirano MD Date/Time: 03/15/24 08:41 Surgeon: Magdy Altamirano MD Pre Op Diagnosis: Neoplasm screening Patient Data Age: 63 Gender: F Height: 1.63 m Weight: 69.9 kg Last Vital Signs Temp 36.2 C L 03/15/24 07:49 Pulse 81 03/15/24 07:49 Resp 16 03/15/24 07:49 BP 164/72 H 03/15/24 07:49 Pulse Ox 100 03/15/24 07:49 O2 Del Method Room Air 03/15/24 07:49 Allergies Allergy/AdvReac Type Severity Reaction Status Date / Time adhesive tape Allergy Severe Other Verified 03/15/24 07:45 Home Medications ?Medication ?Instructions ?Recorded ?Confirmed ?Type dupilumab 300 mg/2 mL subcutaneous 300 mg subcut [id number] 02/22/23 03/15/24 History pen injector (DupixFeast) qfvuxwin-qdaftalozo-vjwx-HC 3.5 1 applic EACH EYE TID PRN eye 03/08/23 03/04/24 Rx mg-400-10,000 unit/g-1 % eye itching #3.5 grams ointment levothyroxine 88 mcg tablet 88 mcg PO DAILY #90 tabs 10/13/23 03/15/24 Rx (Synthroid) acetaminophen 325 mg tablet 650 mg (2 x 325 mg) PO Q4H PRN 02/20/24 03/04/24 Rx Mild Pain (1-3) Or Fever #60 tabs pravastatin 40 mg tablet 40 mg PO HS #90 tabs 02/20/24 03/15/24 Rx amlodipine 5 mg tablet 5 mg PO HS #90 tabs 03/01/24 03/15/24 Rx Patient hx anesthesia problems: other (aspiration) Family hx anesthesia problems: none Results Review: All pre-operative results and documents have been reviewed as part of the pre-operative evaluation. [facility] Past Medical History Medical History Left bundle branch block Noted on EKG in 2009 prior to right lower lobectomy. Per patient report, stress test was unremarkable. Lung cancer (2010) Stage I non-small cell lung cancer status post right lower lobectomy. Essential (primary) hypertension Adult hypothyroidism Mixed hyperlipidemia Surgical History Surgical History History of lobectomy of lung (2010) Right lower lobectomy for stage I non-small cell lung cancer. Family History Family History Mother Cerebrovascular accident Family history of malignant neoplasm Father Family history of congestive heart failure Other Diabetes mellitus Family history of cardiovascular disease Hypertension Social History Social History Social History: Surrogate medical decision maker: Al Brown, spouse. Code status: Full code. Smoking status: Never smoker Second hand tobacco smoke exposure: No Alcohol intake: current Drinks per week: 2 Substance use: never Substance use type: does not use Do You Feel Safe in your Home?: Yes Lack of Transportation: No Lack of Food: Never True Current Housing: I Have Housing Concerned About Future Housing: No Difficulty Paying Gas/Electric Bills: No Difficulty Paying for Meds: No Currently Unemployed: No Education: Master's Degree or Higher Difficulty w/ Childcare or Family Care: No Living arrangements: with family Spiritual care concerns: No Anes - Eval Final PreProcedure Day of Procedure 03/15/24 08:41 Patient weight: overweight Heart: regular rate and rhythm Lungs: clear to auscultation Airway: Mallampati scale class II Neurological: alert and oriented Last oral intake: >/= 8 hours ASA classification: III Emergent: no Anesthetic plan: proceed Anesthesia type and monitoring: general GIVS and standard monitoring Results Review: All pre-operative results and documents have been reviewed as part of the pre-operative evaluation. Informed Consent: The patient's anesthetic plan and its attendant risks and benefits were discussed with the patient/family/POA. Questions were solicited and answers provided to the satisfaction of the patient/family/POA.
--- NOTE | 2024-03-15 08:41 | PM.HPGS ---
History of Present Illness History of Present Illness Consent: Risks, benefits, and alternatives have been discussed and questions answered. Patient agrees to proceed with procedure. Chief complaint: Neoplasm screening Narrative: Ivory Brown is a 63 year old female here for screening colonoscopy, last one 11 years ago Review of Systems Review of Systems: All systems reviewed & are unremarkable except as noted in HPI and below PMFSH Past Medical History Medical History Left bundle branch block Noted on EKG in 2010 prior to right lower lobectomy. Per patient report, stress test was unremarkable. Lung cancer (2010) Stage I non-small cell lung cancer status post right lower lobectomy. Essential (primary) hypertension Adult hypothyroidism Mixed hyperlipidemia Surgical History Surgical History History of lobectomy of lung (2009) Right lower lobectomy for stage I non-small cell lung cancer. Family History Family History Mother Cerebrovascular accident Family history of malignant neoplasm Father Family history of congestive heart failure Other Diabetes mellitus Family history of cardiovascular disease Hypertension Social History Social History Social History: Surrogate medical decision maker: Al Brown, spouse. Code status: Full code. Smoking status: Never smoker Second hand tobacco smoke exposure: No Alcohol intake: current Drinks per week: 2 Substance use: never Substance use type: does not use Do You Feel Safe in your Home?: Yes Lack of Transportation: No Lack of Food: Never True Current Housing: I Have Housing Concerned About Future Housing: No Difficulty Paying Gas/Electric Bills: No Difficulty Paying for Meds: No Currently Unemployed: No Education: Master's Degree or Higher Difficulty w/ Childcare or Family Care: No Living arrangements: with family Spiritual care concerns: No Meds Home Medications and Allergies Home Medications ?Medication ?Instructions ?Recorded ?Confirmed ?Type dupilumab 300 mg/2 mL subcutaneous 300 mg subcut [id number] 02/22/23 03/15/24 History pen injector (Dupixent) [id number] 3.5 1 applic EACH EYE TID PRN eye 03/08/23 03/04/24 Rx mg-400-10,000 unit/g-1 % eye itching #3.5 grams ointment levothyroxine 88 mcg tablet 88 mcg PO DAILY #90 tabs 10/13/23 03/15/24 Rx (Synthroid) acetaminophen 325 mg tablet 650 mg (2 x 325 mg) PO Q4H PRN 02/20/24 03/04/24 Rx Mild Pain (1-3) Or Fever #60 tabs pravastatin 40 mg tablet 40 mg PO HS #90 tabs 02/20/24 03/15/24 Rx amlodipine 5 mg tablet 5 mg PO HS #90 tabs 03/01/24 03/15/24 Rx Allergies Allergy/AdvReac Type Severity Reaction Status Date / Time adhesive tape Allergy Severe Other Verified 03/15/24 07:45 Vital Signs Vital Signs - 24 hr 03/15/24 07:49 Temperature 97.1 F L Pulse Rate 81 Respiratory Rate 16 Blood Pressure 164/72 H Pulse Oximetry 100 Oxygen Delivery Room Air Exam Const: General: comfortable and no acute distress HENMT: Face/Nose/Sinus: Normal nares present Eyes: General: appearance normal, both eyes and all related structures Neck: Neck: no JVD Resp: Auscultation: clear to auscultation bilaterally Cardio: Rate: regular rate Rhythm: regular rhythm GI: Inspection: non-distended GI Palp: Yes Soft to palpation Skin: General skin exam: normal color Neuro: General: gait normal Speech: normal speech Extrem: General: normal to inspection Psych: Mental Status: mental status grossly normal Assessment and Plan Assessment and plan (1) Encounter for screening colonoscopy: Code(s): Z12.11 - Encounter for screening for malignant neoplasm of colon Status: Acute Assessment and Plan: colonoscopy
[2024-03-15 09:00] VITALS: BP 125/81; PULSE 64; RESP 18; O2SAT 98
[2024-03-15 09:10] VITALS: BP 125/61; PULSE 60; RESP 17; O2SAT 100
[2024-03-15 09:20] VITALS: BP 137/67; PULSE 56; RESP 20; O2SAT 100
[2024-03-15 09:30] VITALS: BP 152/65; PULSE 56; RESP 18; O2SAT 100
== END 2024-03-15 09:41 | disposition home or self-care (01) ==
PROVIDERS: PCP Nurse Practitioner; Visit Provider Internal Medicine Gastroenterology
PROC: 0DJD8ZZ Inspection of Lower Intestinal Tract, Via Natural or Artificial Opening Endoscopic (ICD-10-PCS; CPT 45378; principal; 2024-03-15 09:00)
DX: Z12.11 Encounter for screening for malignant neoplasm of colon (principal); K57.30 Diverticulosis of large intestine without perforation or abscess without bleeding
CPT/HCPCS: 45378; J2003; J2405; J2704; J7120

== ENCOUNTER 2024-10-30 15:41 | Outpatient (CLI) | payer OTHER, SELFPAY ==
--- NOTE | ~2024-10-30 | XR_ITS ---
EXAMINATION: XR hip RT min 2V, 10/30/2024 15:54 CDT HISTORY: M25.551 - Chronic pain in right hip COMPARISON: No comparisons available. Findings: No acute fracture or malalignment. Moderate degenerative changes Soft tissues unremarkable. Impression: No acute fracture or malalignment. Reviewed, dictated and finalized at location A. Impression: No acute fracture or malalignment.
== END 2024-10-30 15:42 | disposition home or self-care (01) ==
PROVIDERS: PCP Internal Medicine; Visit Provider Internal Medicine
DX: M25.551 Pain in right hip (principal); G89.29 Other chronic pain
CPT/HCPCS: 73502